=== PATIENT | female | born 1995 | race Caucasian/White ===

== ENCOUNTER 2016-10-11 18:48 | Emergency (ER) | payer OTHER ==
[2016-10-11 18:53] VITALS: BP 120/78
[2016-10-11] MEDS ORDERED: FAMOTIDINE 20 MG/2 ML VIAL IV STA (19:08)
[2016-10-11] MEDS ORDERED: SODIUM CHLORIDE 0.9% 1,000 ML IV ONE (19:08)
[2016-10-11] MEDS ORDERED: methylPREDNISolone SOD SUCCI 125 MG/2 ML VIAL IV STA (19:08)
[2016-10-11] MEDS ORDERED: diphenhydrAMINE 50 MG/ML 1 ML VIAL IVP STA (19:08)
--- NOTE | 2016-10-11 19:15 | ED ---
General Adult HPI - General Chief complaint: Allergic Reaction Stated complaint: poss allergic reaction to new med Time Seen by Provider: 10/11/16 19:04 Source: patient, family, RN notes reviewed Mode of arrival: wheelchair Limitations: no limitations - History of Present Illness Initial comments: 20-year-old female presenting for ALLERGIC reaction. Patient states that she was started on Bactrim for UTI. She took her first dose today and about 30 minutes afterwards began feeling a diffuse rash develop which is itchy and affecting her whole body. She states she took 50 mg of by mouth Benadryl at about 6:30 PM. She didn't have any significant improvement of her symptoms since then so she came to the ED. She denies any shortness of breath or throat swelling. She denies any history of known ALLERGIES to any medications. She has had Bactrim in the past without reaction. She denies any fevers or chills. She denies any nausea or vomiting. - Related Data Home Medications Medication Instructions Recorded Confirmed Lisdexamfetamine Dimesylate 70 mg PO QAM 10/11/16 10/11/16 [Vyvanse] Norethindrone AC-Eth Estradiol 1 tab PO DAILY 10/11/16 10/11/16 [Microgestin 21 1.5-30 Tab] Sulfamethox-Tmp 800-160Mg [Bactrim 1 tab PO Q12HR 10/11/16 10/11/16 DS 800-160 mg] diphenhydrAMINE [Benadryl] 50 mg PO DAILY PRN 10/11/16 10/11/16 Previous Rx's Medication Instructions Recorded Cephalexin [Keflex] 500 mg PO BID #14 cap 10/11/16 diphenhydrAMINE [Benadryl] 25 mg PO QID PRN #16 capsule 10/11/16 predniSONE 40 mg PO DAILY 3 Days 10/11/16 Allergies Allergy/AdvReac Type Severity Reaction Status Date / Time sulfamethoxazole Allergy Rash/Hives Verified 10/11/16 19:00 [From Bactrim] trimethoprim [From Bactrim] Allergy Rash/Hives Verified 10/11/16 19:00 Review of Systems ROS Statement: Those systems with pertinent positive or pertinent negative responses have been documented in the HPI. ROS Other: All systems not noted in ROS Statement are negative. Past Medical History Additional Past Medical History / Comment(s): frequent UTI's History of Any Multi-Drug Resistant Organisms: None Reported Past Surgical History: Adenoidectomy, Tonsillectomy Past Psychological History: No Psychological Hx Reported Smoking Status: Never smoker Past Alcohol Use History: None Reported Past Drug Use History: None Reported General Exam - General Exam Comments Initial Comments: General: Awake and Alert. No acute distress. Does not appear acutely ill. Eyes: GOYO, EOM intact. No nystagmus. No scleral icterus. HENT: Atraumatic, normocephalic. Mucous membranes moist. Trachea midline. No posterior pharyngeal edema. Neck: The neck is supple, there is no tenderness or JVD. Cardiovascular: Regular rate and rhythm. No murmur, rub, or gallop is appreciated. Distal pulses intact. Respiratory: Lungs are clear to auscultation bilaterally. No wheezes, rales, rhonchi. No respiratory distress. Gastrointestinal: Soft, Nontender. No rebound or guarding. Non-distended. No masses or organomegaly noted. No CVA tenderness. Musculoskeletal: No tenderness. Normal ROM. No gross deformity. No strength deficits. Neurological: A&Ox3. CN II-XII grossly intact, There are no obvious motor or sensory deficits. Coordination appears grossly intact. Speech is normal. Skin: Skin is warm and dry. Diffuse erythematous rash over entire body. Psychiatric: Cooperative, appropriate mood & affect, normal judgment. Limitations: no limitations Course Vital Signs 10/11/16 10/11/16 10/11/16 18:50 19:37 20:20 Temperature 97.6 F 98.4 F Pulse Rate 101 H 88 Respiratory 16 16 18 Rate Blood Pressure 120/78 O2 Sat by Pulse 98 98 Oximetry Medical Decision Making - Medical Decision Making 89-year-old female presenting for ALLERGIC reaction. Reaction likely secondary to Bactrim use. Patient was given IV fluids, Benadryl, Solu-Medrol, Pepcid. Lab workup is grossly unremarkable. UA does show evidence of infection. Patient reevaluated and appears significantly improved after meds/IVF. Patient was given dose of Keflex in the ED and monitored. No reaction to this medication. Discussed continuing Keflex for treatment of UTI. Discussed use of prednisone and Benadryl for symptomatic management. Rx provided. Discussed concerning signs symptoms for immediate return to the ED. Patient and mother agreeable with plan discharge home. - Lab Data Result diagrams: 10/11/16 19:30 10/11/16 19:30 Lab Results 10/11/16 10/11/16 10/11/16 Range/Units 19:30 19:30 19:30 WBC 5.9 (4.0-11.0) k/uL RBC 4.87 (3.80-5.40) m/uL Hgb 14.4 (11.4-16.0) gm/dL Hct 41.5 (34.0-46.0) % MCV 85.1 (80.0-100.0) fL MCH 29.6 (25.0-35.0) pg MCHC 34.8 (31.0-37.0) g/dL RDW 13.4 (11.5-15.5) % Plt Count 353 (150-450) k/uL Neutrophils % 50 % Lymphocytes % 43 % Monocytes % 3 % Eosinophils % 1 % Basophils % 0 % Neutrophils # 3.0 (1.3-7.7) k/uL Lymphocytes # 2.6 (1.0-4.8) k/uL Monocytes # 0.2 (0-1.0) k/uL Eosinophils # 0.1 (0-0.7) k/uL Basophils # 0.0 (0-0.2) k/uL Sodium 140 (137-145) mmol/L Potassium 4.1 (3.5-5.1) mmol/L Chloride 109 H (98-107) mmol/L Carbon Dioxide 21 L (22-30) mmol/L Anion Gap 10 mmol/L BUN 7 (7-17) mg/dL Creatinine 0.70 (0.52-1.04) mg/dL Est GFR (MDRD) Af Amer >60 (>60 ml/min/1.73 sqM) Est GFR (MDRD) Non-Af >60 (>60 ml/min/1.73 sqM) Glucose 104 H (74-99) mg/dL Calcium 9.2 (8.4-10.2) mg/dL Urine Color Urine Appearance (Clear) Urine pH (5.0-8.0) Ur Specific [place] (1.001-1.035) Urine Protein (Negative) Urine Glucose (UA) (Negative) Urine Ketones (Negative) Urine Blood (Negative) Urine Nitrite (Negative) Urine Bilirubin (Negative) Urine Urobilinogen (<2.0) mg/dL Ur Leukocyte Esterase (Negative) Urine WBC (0-5) /hpf Ur Squamous Epith Cells (0-4) /hpf Urine Bacteria (None) /hpf Urine Mucus (None) /hpf Urine HCG, Qual Not Detected (Not Detectd) 10/11/16 Range/Units 19:30 WBC (4.0-11.0) k/uL RBC (3.80-5.40) m/uL Hgb (11.4-16.0) gm/dL Hct (34.0-46.0) % MCV (80.0-100.0) fL MCH (25.0-35.0) pg MCHC (31.0-37.0) g/dL RDW (11.5-15.5) % Plt Count (150-450) k/uL Neutrophils % % Lymphocytes % % Monocytes % % Eosinophils % % Basophils % % Neutrophils # (1.3-7.7) k/uL Lymphocytes # (1.0-4.8) k/uL Monocytes # (0-1.0) k/uL Eosinophils # (0-0.7) k/uL Basophils # (0-0.2) k/uL Sodium (137-145) mmol/L Potassium (3.5-5.1) mmol/L Chloride (98-107) mmol/L Carbon Dioxide (22-30) mmol/L Anion Gap mmol/L BUN (7-17) mg/dL Creatinine (0.52-1.04) mg/dL Est GFR (MDRD) Af Amer (>60 ml/min/1.73 sqM) Est GFR (MDRD) Non-Af (>60 ml/min/1.73 sqM) Glucose (74-99) mg/dL Calcium (8.4-10.2) mg/dL Urine Color Yellow Urine Appearance Cloudy H (Clear) Urine pH 6.5 (5.0-8.0) Ur Specific [place] 1.023 (1.001-1.035) Urine Protein Trace H (Negative) Urine Glucose (UA) Negative (Negative) Urine Ketones Negative (Negative) Urine Blood Negative (Negative) Urine Nitrite Positive H (Negative) Urine Bilirubin Negative (Negative) Urine Urobilinogen <2.0 (<2.0) mg/dL Ur Leukocyte Esterase Small H (Negative) Urine WBC 26 H (0-5) /hpf Ur Squamous Epith Cells 8 H (0-4) /hpf Urine Bacteria Many H (None) /hpf Urine Mucus Rare H (None) /hpf Urine HCG, Qual (Not Detectd) Disposition Clinical Impression: Allergic reaction, UTI (urinary tract infection) Disposition: HOME SELF-CARE Condition: Stable Instructions: Antibiotic Medication Allergy (ED), Urinary Tract Infection in Women (ED) Additional Instructions: Stop taking the Bactrim. Please follow up with Urology regarding your recurrent UTIs. Prescriptions: Cephalexin [Keflex] 500 mg PO BID #14 cap diphenhydrAMINE [Benadryl] 25 mg PO QID PRN #16 capsule PRN Reason: Rash predniSONE 40 mg PO DAILY 3 Days Referrals: Duncan Ag Jr, DO [Primary Care Provider] - 1-2 days Darrick Mckeon MD [STAFF PHYSICIAN] - 1-2 days
[2016-10-11 19:41] LABS: Basophils % (A) 0 %; CH 30.3; CHCM 35.8; Eosinophils # (A) 0.1 k/uL (0-0.7); Eosinophils % (A) 1 %; HCT 41.5 % (34.0-46.0); HDW 2.69; HGB 14.4 gm/dL (11.4-16.0); Luc # (Auto) 0.13; Luc % (Auto) 2; Lymphocytes # (A) 2.6 k/uL (1.0-4.8); Lymphocytes % (A) 43 %; MCH 29.6 pg (25.0-35.0); MCHC 34.8 g/dL (31.0-37.0); MCV 85.1 fL (80.0-100.0); Mean Platelet Volume 6.2; Monocytes # (A) 0.2 k/uL (0-1.0); Monocytes % (A) 3 %; Neutrophils % (A) 50 %; RBC 4.87 m/uL (3.80-5.40); RDW 13.4 % (11.5-15.5); WBC 5.9 k/uL (4.0-11.0); WBC (Perox) 5.78
[2016-10-11 19:55] LABS: Anion Gap 10 mmol/L; Appearance,Urine Cloudy (Clear); Bacteria,Urine Many /hpf; Bilirubin,Urine Negative (Negative); Blood Urea Nitrogen 7 mg/dL (7-17); Calcium 9.2 mg/dL (8.4-10.2); Carbon Dioxide 21 mmol/L (22-30); Chloride 109 mmol/L (98-107); Glucose 104 mg/dL (74-99); Glucose,Urine (UA) Negative (Negative); Ketones,Urine Negative (Negative); Leukocyte Esterase,Urine Small (Negative); Mucus,Urine Rare /hpf; Nitrite,Urine Positive (Negative); Non-African American GFR(MDRD) >60 (>60 ml/min/1.73 sqM); PH, Urine 6.5 (5.0-8.0); Particle Count 17564; Potassium 4.1 mmol/L (3.5-5.1); Protein,Urine Trace (Negative); Sodium 140 mmol/L (137-145); Specific Gravity,Urine 1.023 (1.001-1.035); Squamous Epithelial Cell,Urine 8 /hpf (0-4); UA Billing (MACRO vs. MICRO) MICRO; Urobilinogen,Urine <2.0 mg/dL (<2.0); WBC,Urine 26 /hpf (0-5)
[2016-10-11] MEDS ORDERED: CEPHALEXIN 500 MG CAP PO STA (20:14)
[2016-10-11 20:21] VITALS: PULSE 88; RESP 18; TEMP 98.4
== END 2016-10-11 20:52 | disposition home or self-care (01) ==
LOC: EC 18:48
DX: R21 Rash and other nonspecific skin eruption (principal); T36.8X5A Adverse effect of other systemic antibiotics, initial encounter; N39.0 Urinary tract infection, site not specified; Z88.2 Allergy status to sulfonamides
CPT/HCPCS: 99283; 96374; 96375 ×2; 96361; 36415; 80048; 85025; 81001; 81025; J1200; J2930; 87077; 87086; 87186; 87491; 87591

== ENCOUNTER 2016-12-13 04:16 | Emergency (ER) | payer OTHER ==
[2016-12-13 04:23] VITALS: RESP 18
[2016-12-13] MEDS ORDERED: ONDANSETRON ODT 4 MG TAB PO STA (04:50)
[2016-12-13] MEDS ORDERED: IBUPROFEN 800 MG TAB PO STA (04:50)
[2016-12-13] MEDS ORDERED: ACETAMINOPHEN TAB 500 MG TAB PO STA (04:50)
[2016-12-13 05:08] LABS: Appearance,Urine Cloudy (Clear); Bacteria,Urine Rare /hpf; Bilirubin,Urine Negative (Negative); Glucose,Urine (UA) Negative (Negative); Ketones,Urine Negative (Negative); Leukocyte Esterase,Urine Small (Negative); Mucus,Urine Rare /hpf; Nitrite,Urine Negative (Negative); PH, Urine 5.5 (5.0-8.0); Particle Count 7062; Protein,Urine Negative (Negative); RBC,Urine 2 /hpf (0-5); Squamous Epithelial Cell,Urine 10 /hpf (0-4); UA Billing (MACRO vs. MICRO) MICRO; Urobilinogen,Urine <2.0 mg/dL (<2.0); WBC,Urine 5 /hpf (0-5)
[2016-12-13] MEDS ORDERED: PANTOPRAZOLE 40 MG/10 ML VIAL IVP STA (05:29)
[2016-12-13] MEDS ORDERED: RX INFO: IV CONTRAST WAS GIVEN 1 EACH MISC MISCELLANE PRN (05:29)
[2016-12-13] MEDS ORDERED: SODIUM CHLORIDE 0.9% 500 ML IV STA (05:29)
[2016-12-13] MEDS ORDERED: ONDANSETRON 4 MG/2 ML VIAL IVP STA (05:29)
[2016-12-13] MEDS ORDERED: SODIUM CHLORIDE 0.9% 1,000 ML IV STA ×3 (05:29→06:50)
[2016-12-13] MEDS ORDERED: MORPHINE SULFATE 4 MG/ML SYRINGE IV STA (05:29)
--- NOTE | 2016-12-13 05:31 | ED ---
General Adult HPI - General Chief complaint: Abdominal Pain Stated complaint: Pelvic Pain/Abdominal Pain Time Seen by Provider: 12/13/16 04:20 Source: patient, RN notes reviewed, old records reviewed Mode of arrival: ambulatory Limitations: no limitations - History of Present Illness Initial comments: This is a 21-year-old female ER for evaluation of abdominal pain abdominal pain , no fevers. Patient recently diagnosed with urinary tract infection to appropriate antibiotic treatment and no improvement in pain. Patient denies travel history or sick contacts, denies history of similar complaints. No prior history of surgery, patient is severely nauseous with vomiting - Related Data Home Medications Medication Instructions Recorded Confirmed Lisdexamfetamine Dimesylate 70 mg PO QAM 10/11/16 12/13/16 [Vyvanse] Norethindrone AC-Eth Estradiol 1 tab PO DAILY 10/11/16 12/13/16 [Microgestin 21 1.5-30 Tab] Nitrofurantoin Monohyd/M-Cryst 100 mg PO Q12HR 12/13/16 12/13/16 [Macrobid] Allergies Allergy/AdvReac Type Severity Reaction Status Date / Time Sulfa (Sulfonamide Allergy Unknown Verified 12/13/16 07:54 Antibiotics) sulfamethoxazole Allergy Rash/Hives Verified 12/13/16 07:54 [From Bactrim] trimethoprim [From Bactrim] Allergy Rash/Hives Verified 12/13/16 07:54 Review of Systems ROS Statement: Those systems with pertinent positive or pertinent negative responses have been documented in the HPI. ROS Other: All systems not noted in ROS Statement are negative. Past Medical History Additional Past Medical History / Comment(s): frequent UTI's History of Any Multi-Drug Resistant Organisms: None Reported Past Surgical History: Adenoidectomy, Tonsillectomy Past Psychological History: No Psychological Hx Reported Smoking Status: Current some day smoker Past Alcohol Use History: None Reported Past Drug Use History: None Reported General Exam Limitations: no limitations General appearance: alert, in no apparent distress, anxious, obese Head exam: Present: atraumatic, normocephalic, normal inspection Eye exam: Present: normal appearance, PERRL, EOMI. Absent: scleral icterus, conjunctival injection, periorbital swelling ENT exam: Present: normal exam, mucous membranes moist Neck exam: Present: normal inspection. Absent: tenderness, meningismus, lymphadenopathy Respiratory exam: Present: normal lung sounds bilaterally. Absent: respiratory distress, wheezes, rales, rhonchi, stridor Cardiovascular Exam: Present: regular rate, normal rhythm, normal heart sounds. Absent: systolic murmur, diastolic murmur, rubs, gallop, clicks GI/Abdominal exam: Present: soft, tenderness, normal bowel sounds. Absent: distended, guarding, rebound, rigid Extremities exam: Present: normal inspection, full ROM, normal capillary refill. Absent: tenderness, pedal edema, joint swelling, calf tenderness Back exam: Present: normal inspection Neurological exam: Present: alert, oriented X3, CN II-XII intact Psychiatric exam: Present: normal affect, normal mood Skin exam: Present: warm, dry, intact, normal color. Absent: rash Course Vital Signs 12/13/16 12/13/16 04:20 07:55 Temperature 98.0 F Pulse Rate 81 95 Respiratory 18 18 Rate Blood Pressure 130/96 120/71 O2 Sat by Pulse 99 97 Oximetry Medical Decision Making - Medical Decision Making 21 [facility] for evaluation. Patient was SEF for nausea vomiting diarrhea, recent diagnosis of UTI which has resolved, patient's symptoms are now resolved we'll treat outpatient with antibiotics, patient feeling better with fluid resuscitation, CT abdomen and pelvis is negative for acute disease - Lab Data Result diagrams: 12/13/16 05:45 12/13/16 05:45 Lab Results 12/13/16 12/13/16 12/13/16 Range/Units 04:45 04:45 05:45 WBC (4.0-11.0) k/uL RBC (3.80-5.40) m/uL Hgb (11.4-16.0) gm/dL Hct (34.0-46.0) % MCV (80.0-100.0) fL MCH (25.0-35.0) pg MCHC (31.0-37.0) g/dL RDW (11.5-15.5) % Plt Count (150-450) k/uL Neutrophils % % Lymphocytes % % Monocytes % % Eosinophils % % Basophils % % Neutrophils # (1.3-7.7) k/uL Lymphocytes # (1.0-4.8) k/uL Monocytes # (0-1.0) k/uL Eosinophils # (0-0.7) k/uL Basophils # (0-0.2) k/uL Sodium 142 (137-145) mmol/L Potassium 4.7 (3.5-5.1) mmol/L Chloride 108 H (98-107) mmol/L Carbon Dioxide 20 L (22-30) mmol/L Anion Gap 14 mmol/L BUN 12 (7-17) mg/dL Creatinine 0.65 (0.52-1.04) mg/dL Est GFR (MDRD) Af Amer >60 (>60 ml/min/1.73 sqM) Est GFR (MDRD) Non-Af >60 (>60 ml/min/1.73 sqM) Glucose 114 H (74-99) mg/dL Plasma Lactic Acid Mor (0.7-2.0) mmol/L Calcium 9.8 (8.4-10.2) mg/dL Total Bilirubin 0.7 (0.2-1.3) mg/dL AST 32 (14-36) U/L ALT 23 (9-52) U/L Alkaline Phosphatase 95 (38-126) U/L Total Protein 8.5 H (6.3-8.2) g/dL Albumin 4.7 (3.5-5.0) g/dL Amylase 52 (30-110) U/L Lipase 58 (23-300) U/L Urine Color Yellow Urine Appearance Cloudy H (Clear) Urine pH 5.5 (5.0-8.0) Ur Specific [place] 1.010 (1.001-1.035) Urine Protein Negative (Negative) Urine Glucose (UA) Negative (Negative) Urine Ketones Negative (Negative) Urine Blood Negative (Negative) Urine Nitrite Negative (Negative) Urine Bilirubin Negative (Negative) Urine Urobilinogen <2.0 (<2.0) mg/dL Ur Leukocyte Esterase Small H (Negative) Urine RBC 2 (0-5) /hpf Urine WBC 5 (0-5) /hpf Ur Squamous Epith Cells 10 H (0-4) /hpf Urine Bacteria Rare H (None) /hpf Urine Mucus Rare H (None) /hpf Urine HCG, Qual Not Detected (Not Detectd) 12/13/16 12/13/16 Range/Units 05:45 05:45 WBC 8.1 (4.0-11.0) k/uL RBC 4.90 (3.80-5.40) m/uL Hgb 14.6 (11.4-16.0) gm/dL Hct 41.0 (34.0-46.0) % MCV 83.7 (80.0-100.0) fL MCH 29.7 (25.0-35.0) pg MCHC 35.5 (31.0-37.0) g/dL RDW 12.7 (11.5-15.5) % Plt Count 331 (150-450) k/uL Neutrophils % 70 % Lymphocytes % 20 % Monocytes % 5 % Eosinophils % 2 % Basophils % 1 % Neutrophils # 5.7 (1.3-7.7) k/uL Lymphocytes # 1.7 (1.0-4.8) k/uL Monocytes # 0.4 (0-1.0) k/uL Eosinophils # 0.1 (0-0.7) k/uL Basophils # 0.1 (0-0.2) k/uL Sodium (137-145) mmol/L Potassium (3.5-5.1) mmol/L Chloride (98-107) mmol/L Carbon Dioxide (22-30) mmol/L Anion Gap mmol/L BUN (7-17) mg/dL Creatinine (0.52-1.04) mg/dL Est GFR (MDRD) Af Amer (>60 ml/min/1.73 sqM) Est GFR (MDRD) Non-Af (>60 ml/min/1.73 sqM) Glucose (74-99) mg/dL Plasma Lactic Acid Mor 3.1 H* (0.7-2.0) mmol/L Calcium (8.4-10.2) mg/dL Total Bilirubin (0.2-1.3) mg/dL AST (14-36) U/L ALT (9-52) U/L Alkaline Phosphatase (38-126) U/L Total Protein (6.3-8.2) g/dL Albumin (3.5-5.0) g/dL Amylase (30-110) U/L Lipase (23-300) U/L Urine Color Urine Appearance (Clear) Urine pH (5.0-8.0) Ur Specific [place] (1.001-1.035) Urine Protein (Negative) Urine Glucose (UA) (Negative) Urine Ketones (Negative) Urine Blood (Negative) Urine Nitrite (Negative) Urine Bilirubin (Negative) Urine Urobilinogen (<2.0) mg/dL Ur Leukocyte Esterase (Negative) Urine RBC (0-5) /hpf Urine WBC (0-5) /hpf Ur Squamous Epith Cells (0-4) /hpf Urine Bacteria (None) /hpf Urine Mucus (None) /hpf Urine HCG, Qual (Not Detectd) - Radiology Data Radiology results: report reviewed (CT abdomen and pelvis is negative for acute disease), image reviewed Disposition Clinical Impression: Abdominal pain, Gastroenteritis Disposition: HOME SELF-CARE Condition: Good Instructions: Abdominal Pain (ED) Referrals: Duncan Ag Jr, DO [Primary Care Provider] - 1-2 days
[2016-12-13 06:01] LABS: Basophils # (A) 0.1 k/uL (0-0.2); Basophils % (A) 1 %; CH 29.9; CHCM 35.9; Eosinophils # (A) 0.1 k/uL (0-0.7); Eosinophils % (A) 2 %; HDW 2.59; HGB 14.6 gm/dL (11.4-16.0); Luc # (Auto) 0.15; Luc % (Auto) 2; Lymphocytes # (A) 1.7 k/uL (1.0-4.8); Lymphocytes % (A) 20 %; MCH 29.7 pg (25.0-35.0); MCHC 35.5 g/dL (31.0-37.0); MCV 83.7 fL (80.0-100.0); Mean Platelet Volume 6.1; Monocytes # (A) 0.4 k/uL (0-1.0); Monocytes % (A) 5 %; Neutrophils # (A) 5.7 k/uL (1.3-7.7); Neutrophils % (A) 70 %; RDW 12.7 % (11.5-15.5); WBC 8.1 k/uL (4.0-11.0); WBC (Perox) 7.41
[2016-12-13 06:20] LABS: ALT 23 U/L (9-52); AST 32 U/L (14-36); Alkaline Phosphatase 95 U/L (38-126); Amylase 52 U/L (30-110); Anion Gap 14 mmol/L; Blood Urea Nitrogen 12 mg/dL (7-17); Calcium 9.8 mg/dL (8.4-10.2); Carbon Dioxide 20 mmol/L (22-30); Chloride 108 mmol/L (98-107); Glucose 114 mg/dL (74-99); Non-African American GFR(MDRD) >60 (>60 ml/min/1.73 sqM); Potassium 4.7 mmol/L (3.5-5.1); Sodium 142 mmol/L (137-145); Total Bilirubin 0.7 mg/dL (0.2-1.3); Total Protein 8.5 g/dL (6.3-8.2)
--- NOTE | 2016-12-13 08:44 | CT ---
EXAMINATION TYPE: CT abdomen pelvis w con DATE OF EXAM: 12/13/2016 HISTORY: pain, nausea and vomiting CT DLP: 630.6mGycm Automated Exposure Control for Dose Reduction was Utilized. CONTRAST: CT scan of the abdomen and pelvis is performed without oral and with IV Contrast, patient injected wi th 100 mL of Omnipaque 300. COMPARISON: None. FINDINGS: LUNG BASES: No significant abnormality is appreciated. LIVER/GB: No significant abnormality is appreciated. PANCREAS: No significant abnormality is seen. SPLEEN: No significant abnormality is seen. ADRENALS: No significant abnormality is seen. KIDNEYS: No significant abnormality is seen. BOWEL: The evaluation of bowel is suboptimal secondary to lack of enteric contrast. There is no suspi cious small or large bowel dilatation. Normal-appearing appendix is seen from cecum . UTERUS/ADNEXA: Uterus is anteverted in shape and within normal limits in size projecting to right of midline. Tiny amount of free fluid is seen in right pelvis on axial image 68, nonspecific finding. LYMPH NODES: No greater than 1cm abdominal or pelvic lymph nodes are appreciated. OSSEOUS STRUCTURES: Prominent Schmorl node anterior inferior L1 endplate is seen. There is well corti cated linear lucency anterior superior L3 vertebra suspect limbus vertebra. OTHER: No significant additional abnormality is seen. IMPRESSION: No bowel obstruction. No significant acute finding is seen to account for patient's clini cabrera symptoms.
[2016-12-13 09:29] VITALS: BP 122/76; PULSE 80; TEMP 98.2
== END 2016-12-13 09:28 | disposition home or self-care (01) ==
LOC: EC 04:16
DX: K52.9 Noninfective gastroenteritis and colitis, unspecified (principal); R11.2 Nausea with vomiting, unspecified; F17.200 Nicotine dependence, unspecified, uncomplicated; Z79.3 Long term (current) use of hormonal contraceptives; Z79.899 Other long term (current) drug therapy; Z88.2 Allergy status to sulfonamides
CPT/HCPCS: 36415; 80053; 82150; 83605; 83690; 85025; 81001; 81025; 87491; 87591; 87086; 74177; 99284; 96374; 96375; 96361 ×3; J2405; Q9967; C9113

== ENCOUNTER 2017-08-02 10:35 | Emergency (ER) | payer OTHER ==
[2017-08-02 10:46] VITALS: RESP 18
[2017-08-02] MEDS ORDERED: SODIUM CHLORIDE 0.9% 2,000 ML IV STA (10:58)
[2017-08-02] MEDS ORDERED: ONDANSETRON 4 MG/2 ML VIAL IVP STA (10:58)
--- NOTE | 2017-08-02 11:24 | ED ---
Nausea/Vomiting/Diarrhea HPI - General Chief complaint: Nausea/Vomiting/Diarrhea Stated complaint: Flu Time Seen by Provider: 08/02/17 10:46 Source: patient, RN notes reviewed Mode of arrival: ambulatory Limitations: no limitations - History of Present Illness Initial comments: This a 21-year-old female presents emergency Department chief complaint of nausea vomiting diarrhea. Patient states symptoms started around 1:30 AM this morning. Patient states that she's had no contacts with some symptoms. She's had greater than 10 episodes of both emesis and diarrhea. She states she has generalized abdominal discomfort no localized abdominal pain. Patient denies any fever, chills at this time. Patient denies chest pain, cough or chest congestion. Denies any dysuria no hematuria. Patient states she is not she does have a miscarriage approximately 2 weeks ago. - Related Data Home Medications Medication Instructions Recorded Confirmed Lisdexamfetamine Dimesylate 70 mg PO QAM 10/11/16 08/02/17 [Vyvanse] Escitalopram [Lexapro] 20 mg PO DAILY 08/02/17 08/02/17 Ibuprofen [Motrin] 800 mg PO Q8H PRN 08/02/17 08/02/17 Viorele 1 tab PO DAILY 08/02/17 08/02/17 Previous Rx's Medication Instructions Recorded Ondansetron Odt [Zofran Odt] 4 mg PO Q8HR PRN #10 tab 08/02/17 Allergies Allergy/AdvReac Type Severity Reaction Status Date / Time Sulfa (Sulfonamide Allergy Unknown Verified 08/02/17 11:11 Antibiotics) sulfamethoxazole Allergy Rash/Hives Verified 08/02/17 11:11 [From Bactrim] trimethoprim [From Bactrim] Allergy Rash/Hives Verified 08/02/17 11:11 Review of Systems ROS Statement: Those systems with pertinent positive or pertinent negative responses have been documented in the HPI. ROS Other: All systems not noted in ROS Statement are negative. Past Medical History Additional Past Medical History / Comment(s): frequent UTI's History of Any Multi-Drug Resistant Organisms: None Reported Past Surgical History: Adenoidectomy, Tonsillectomy Past Psychological History: No Psychological Hx Reported Smoking Status: Current some day smoker Past Alcohol Use History: None Reported Past Drug Use History: None Reported General Exam Limitations: no limitations General appearance: alert, in no apparent distress Head exam: Present: atraumatic, normocephalic, normal inspection Eye exam: Present: normal appearance, PERRL, EOMI. Absent: scleral icterus, conjunctival injection, periorbital swelling ENT exam: Present: normal exam, normal oropharynx, mucous membranes moist, TM's normal bilaterally Neck exam: Present: normal inspection, full ROM. Absent: tenderness, meningismus, lymphadenopathy Respiratory exam: Present: normal lung sounds bilaterally. Absent: respiratory distress, wheezes, rales, rhonchi, stridor Cardiovascular Exam: Present: regular rate, normal rhythm, normal heart sounds. Absent: systolic murmur, diastolic murmur, rubs, gallop, clicks GI/Abdominal exam: Present: soft, normal bowel sounds. Absent: distended, tenderness, guarding, rebound, rigid Neurological exam: Present: alert, oriented X3, CN II-XII intact Skin exam: Present: warm, dry, intact, normal color. Absent: rash Course Vital Signs 08/02/17 10:40 Temperature 98.9 F Pulse Rate 114 H Respiratory 18 Rate Blood Pressure 137/73 O2 Sat by Pulse 98 Oximetry Medical Decision Making - Medical Decision Making 21-year-old female presented from for nausea vomiting diarrhea. Patient is better after antiemetics, IV fluids. Patient lab work reviewed essentially unremarkable. [facility] - Lab Data Result diagrams: 08/02/17 11:25 08/02/17 11:25 Lab Results 08/02/17 08/02/17 08/02/17 Range/Units 11:25 11:25 11:25 WBC 11.4 H (4.0-11.0) k/uL RBC 4.95 (3.80-5.40) m/uL Hgb 14.1 (11.4-16.0) gm/dL Hct 41.5 (34.0-46.0) % MCV 83.8 (80.0-100.0) fL MCH 28.6 (25.0-35.0) pg MCHC 34.1 (31.0-37.0) g/dL RDW 12.4 (11.5-15.5) % Plt Count 323 (150-450) k/uL Neutrophils % 94 % Lymphocytes % 3 % Monocytes % 2 % Eosinophils % 0 % Basophils % 0 % Neutrophils # 10.7 H (1.3-7.7) k/uL Lymphocytes # 0.4 L (1.0-4.8) k/uL Monocytes # 0.2 (0-1.0) k/uL Eosinophils # 0.0 (0-0.7) k/uL Basophils # 0.0 (0-0.2) k/uL Sodium 142 (137-145) mmol/L Potassium 4.2 (3.5-5.1) mmol/L Chloride 106 (98-107) mmol/L Carbon Dioxide 22 (22-30) mmol/L Anion Gap 14 mmol/L BUN 10 (7-17) mg/dL Creatinine 0.55 (0.52-1.04) mg/dL Est GFR (MDRD) Af Amer >60 (>60 ml/min/1.73 sqM) Est GFR (MDRD) Non-Af >60 (>60 ml/min/1.73 sqM) Glucose 124 H (74-99) mg/dL Calcium 9.7 (8.4-10.2) mg/dL Total Bilirubin 1.1 (0.2-1.3) mg/dL AST 18 (14-36) U/L ALT 25 (9-52) U/L Alkaline Phosphatase 116 (38-126) U/L Total Protein 7.7 (6.3-8.2) g/dL Albumin 4.5 (3.5-5.0) g/dL Amylase 52 (30-110) U/L Lipase 31 (23-300) U/L Urine Color Yellow Urine Appearance Cloudy H (Clear) Urine pH 6.5 (5.0-8.0) Ur Specific [place] 1.025 (1.001-1.035) Urine Protein 1+ H (Negative) Urine Glucose (UA) Negative (Negative) Urine Ketones 2+ H (Negative) Urine Blood Negative (Negative) Urine Nitrite Negative (Negative) Urine Bilirubin Negative (Negative) Urine Urobilinogen <2.0 (<2.0) mg/dL Ur Leukocyte Esterase Small H (Negative) Urine RBC 2 (0-5) /hpf Urine WBC 3 (0-5) /hpf Ur Squamous Epith Cells 40 H (0-4) /hpf Urine Bacteria Rare H (None) /hpf Urine Mucus Many H (None) /hpf Disposition Clinical Impression: Gastroenteritis Disposition: HOME SELF-CARE Condition: Stable Instructions: Gastroenteritis (ED) Additional Instructions: Please return to the Emergency Department if symptoms worsen or any other concerns. Prescriptions: Ondansetron Odt [Zofran Odt] 4 mg PO Q8HR PRN #10 tab PRN Reason: Nausea Referrals: Chris Kern MD [Primary Care Provider] - 1-2 days Time of Disposition: 12:12
[2017-08-02 11:59] LABS: Appearance,Urine Cloudy (Clear); Bacteria,Urine Rare /hpf; Bilirubin,Urine Negative (Negative); Blood,Urine Negative (Negative); Color,Urine Yellow; Glucose,Urine (UA) Negative (Negative); Ketones,Urine 2+ (Negative); Leukocyte Esterase,Urine Small (Negative); Mucus,Urine Many /hpf; Nitrite,Urine Negative (Negative); PH, Urine 6.5 (5.0-8.0); Protein,Urine 1+ (Negative); RBC,Urine 2 /hpf (0-5); Specific Gravity,Urine 1.025 (1.001-1.035); Squamous Epithelial Cell,Urine 40 /hpf (0-4); Urobilinogen,Urine <2.0 mg/dL (<2.0); WBC,Urine 3 /hpf (0-5)
[2017-08-02 12:04] LABS: Basophils % (A) 0 %; Eosinophils % (A) 0 %; HCT 41.5 % (34.0-46.0); HGB 14.1 gm/dL (11.4-16.0); Lymphocytes # (A) 0.4 k/uL (1.0-4.8); Lymphocytes % (A) 3 %; MCH 28.6 pg (25.0-35.0); MCHC 34.1 g/dL (31.0-37.0); MCV 83.8 fL (80.0-100.0); Mean Platelet Volume 6.4; Monocytes # (A) 0.2 k/uL (0-1.0); Monocytes % (A) 2 %; Neutrophils # (A) 10.7 k/uL (1.3-7.7); Neutrophils % (A) 94 %; Platelet Count 323 k/uL (150-450); RBC 4.95 m/uL (3.80-5.40); RDW 12.4 % (11.5-15.5); WBC 11.4 k/uL (4.0-11.0)
[2017-08-02 12:07] LABS: ALT 25 U/L (9-52); AST 18 U/L (14-36); Albumin 4.5 g/dL (3.5-5.0); Alkaline Phosphatase 116 U/L (38-126); Amylase 52 U/L (30-110); Anion Gap 14 mmol/L; Blood Urea Nitrogen 10 mg/dL (7-17); Calcium 9.7 mg/dL (8.4-10.2); Carbon Dioxide 22 mmol/L (22-30); Chloride 106 mmol/L (98-107); Glucose 124 mg/dL (74-99); Lipase 31 U/L (23-300); Potassium 4.2 mmol/L (3.5-5.1); Sodium 142 mmol/L (137-145); Total Bilirubin 1.1 mg/dL (0.2-1.3); Total Protein 7.7 g/dL (6.3-8.2)
[2017-08-02 12:22] VITALS: BP 114/67; PULSE 85; TEMP 98.4
== END 2017-08-02 12:30 | disposition home or self-care (01) ==
LOC: EC 10:35
DX: K52.9 Noninfective gastroenteritis and colitis, unspecified (principal); F17.200 Nicotine dependence, unspecified, uncomplicated; Z88.2 Allergy status to sulfonamides; Z79.899 Other long term (current) drug therapy
CPT/HCPCS: 36415; 80053; 82150; 83690; 85025; 81001; 99284; 96374; 96361; J2405

== ENCOUNTER 2017-10-04 21:58 | Emergency (ER) | payer OTHER ==
[2017-10-04 22:15] VITALS: RESP 20
[2017-10-04] MEDS ORDERED: SODIUM CHLORIDE 0.9% 1,000 ML IV STA (22:38)
[2017-10-04] MEDS ORDERED: ACETAMINOPHEN IV (For NPO) 1,000 MG in EMPTY BAG 1 BAG IVPB STA (22:38)
[2017-10-04 22:56] LABS: Basophils % (A) 0 %; Eosinophils # (A) 0.2 k/uL (0-0.7); Eosinophils % (A) 2 %; HCT 36.8 % (34.0-46.0); HGB 13.2 gm/dL (11.4-16.0); Lymphocytes # (A) 2.5 k/uL (1.0-4.8); Lymphocytes % (A) 28 %; MCH 29.1 pg (25.0-35.0); MCHC 35.7 g/dL (31.0-37.0); MCV 81.5 fL (80.0-100.0); Mean Platelet Volume 6.7; Monocytes # (A) 0.5 k/uL (0-1.0); Monocytes % (A) 5 %; Neutrophils # (A) 5.6 k/uL (1.3-7.7); Neutrophils % (A) 64 %; Platelet Count 348 k/uL (150-450); RBC 4.52 m/uL (3.80-5.40); RDW 12.4 % (11.5-15.5); WBC 8.8 k/uL (4.0-11.0)
--- NOTE | 2017-10-04 22:57 | ED ---
General Adult HPI - General Chief complaint: Dizziness Stated complaint: dizzy/sharp pains-10 wks preg Time Seen by Provider: 10/04/17 22:30 Source: patient, RN notes reviewed Mode of arrival: ambulatory Limitations: no limitations - History of Present Illness Initial comments: Patient's 21-year-old female who is approximately 10 weeks with twin gestation, presented emergency room today with chief length right-sided abdominal pain that started this afternoon. She states crampy type pain. Not as intense as it was earlier. States was very sharp. States little nauseated. Has noticed increased urinary frequency. Denies any vaginal bleeding or discharge. Has had ultrasound in this most recently 1 week ago. Denies any other complaint currently. Patient denies any recent fever, chills, shortness of breath, chest pain, back pain, numbness or tingling, dysuria or hematuria, constipation or diarrhea, headaches or visual changes, or any other complaints. - Related Data Home Medications Medication Instructions Recorded Confirmed Pnv,Calcium 72/Iron/Folic Acid 1 tab PO DAILY 10/04/17 10/04/17 [ Plus Tablet] Allergies Allergy/AdvReac Type Severity Reaction Status Date / Time Sulfa (Sulfonamide Allergy Anaphylaxis Verified 10/04/17 22:26 Antibiotics) sulfamethoxazole Allergy Rash/Hives Verified 10/04/17 22:26 [From Bactrim] trimethoprim [From Bactrim] Allergy Rash/Hives Verified 10/04/17 22:26 Review of Systems ROS Statement: Those systems with pertinent positive or pertinent negative responses have been documented in the HPI. ROS Other: All systems not noted in ROS Statement are negative. Past Medical History Additional Past Medical History / Comment(s): frequent UTI's History of Any Multi-Drug Resistant Organisms: None Reported Past Surgical History: Adenoidectomy, Tonsillectomy Past Psychological History: No Psychological Hx Reported Smoking Status: Former smoker Past Alcohol Use History: None Reported Past Drug Use History: None Reported General Exam - General Exam Comments Initial Comments: General: The patient is awake and alert, in no distress, and does not appear acutely ill. Eye: Pupils are equal, round and reactive to light, extra-ocular movements are intact. No nystagmus. There is normal conjunctiva bilaterally. No signs of icterus. Ears, nose, mouth and throat: There are moist mucous membranes and no oral lesions. Neck: The neck is supple, there is no tenderness or JVD. Cardiovascular: There is a regular rate and rhythm. No murmur, rub or gallop is appreciated. Respiratory: Lungs are clear to auscultation, respirations are non-labored, breath sounds are equal. No wheezes, stridor, rales, or rhonchi. Gastrointestinal: Abdomen soft nontender. No rebound tenderness, guarding, or CVA tenderness. Musculoskeletal: Normal ROM, no tenderness. Strength 5/5. Sensation intact. Pulses equal bilaterally 2+. Neurological: A&O x 3. CN II-XII intact, There are no obvious motor or sensory deficits. Coordination appears grossly intact. Speech is normal. Skin: Skin is warm and dry and no rashes or lesions are noted. Psychiatric: Cooperative, appropriate mood & affect, normal judgment. Limitations: no limitations Course Vital Signs 10/04/17 10/04/17 22:11 22:15 Temperature 98.6 F Pulse Rate 98 Pulse Rate [ 98 Bilateral Denture Model Maker ] Respiratory 20 Rate Blood Pressure 119/73 O2 Sat by Pulse 99 Oximetry Medical Decision Making - Medical Decision Making Patient reexamined at this time shows no signs of distress. She states she is feeling better here in emergency room. Her abdomen was soft nontender. No vaginal bleeding or discharge. She does not that she is 10 weeks gestation with twins. Patient states she has had also most recently 1 week ago. Was discussed with patient about ultrasound here. At this time patient has been waiting his ultrasound has been backed up and she feels full. Green discharge follow-up with her DIGITAL SERVICE ENGINEER in the morning. Patient will be discharged advised return if any symptoms increase or worsen. - Lab Data Result diagrams: 10/04/17 22:33 10/04/17 22:33 Lab Results 10/04/17 10/04/17 10/04/17 Range/Units 22:33 22:33 22:33 WBC 8.8 (4.0-11.0) k/uL RBC 4.52 (3.80-5.40) m/uL Hgb 13.2 (11.4-16.0) gm/dL Hct 36.8 (34.0-46.0) % MCV 81.5 (80.0-100.0) fL MCH 29.1 (25.0-35.0) pg MCHC 35.7 (31.0-37.0) g/dL RDW 12.4 (11.5-15.5) % Plt Count 348 (150-450) k/uL Neutrophils % 64 % Lymphocytes % 28 % Monocytes % 5 % Eosinophils % 2 % Basophils % 0 % Neutrophils # 5.6 (1.3-7.7) k/uL Lymphocytes # 2.5 (1.0-4.8) k/uL Monocytes # 0.5 (0-1.0) k/uL Eosinophils # 0.2 (0-0.7) k/uL Basophils # 0.0 (0-0.2) k/uL Sodium 140 (137-145) mmol/L Potassium 3.9 (3.5-5.1) mmol/L Chloride 104 (98-107) mmol/L Carbon Dioxide 23 (22-30) mmol/L Anion Gap 13 mmol/L BUN 6 L (7-17) mg/dL Creatinine 0.40 L (0.52-1.04) mg/dL Est GFR (CKD-EPI)AfAm >90 (>60 ml/min/1.73 sqM) Est GFR (CKD-EPI)NonAf >90 (>60 ml/min/1.73 sqM) Glucose 88 (74-99) mg/dL Calcium 9.1 (8.4-10.2) mg/dL Total Bilirubin <0.1 L (0.2-1.3) mg/dL AST 16 (14-36) U/L ALT 20 (9-52) U/L Alkaline Phosphatase 69 (38-126) U/L Total Protein 6.6 (6.3-8.2) g/dL Albumin 3.8 (3.5-5.0) g/dL Urine Color Light Yellow Urine Appearance Clear (Clear) Urine pH 7.5 (5.0-8.0) Ur Specific [place] 1.004 (1.001-1.035) Urine Protein Negative (Negative) Urine Glucose (UA) Negative (Negative) Urine Ketones Negative (Negative) Urine Blood Negative (Negative) Urine Nitrite Negative (Negative) Urine Bilirubin Negative (Negative) Urine Urobilinogen <2.0 (<2.0) mg/dL Ur Leukocyte Esterase Negative (Negative) Disposition Clinical Impression: Abdominal pain in Disposition: HOME SELF-CARE Condition: Good Instructions: Abdominal Pain in (ED) Additional Instructions: Please follow-up with DIGITAL SERVICE ENGINEER tomorrow morning as discussed. Please return to emergency room for any other concerns. Is patient prescribed a controlled substance at d/c from ED?: No Referrals: Chris Kern MD [Primary Care Provider] - 1-2 days Latanya Goodwin MD [STAFF PHYSICIAN] - 1-2 days Time of Disposition: 00:30
[2017-10-04 22:59] LABS: Appearance,Urine Clear (Clear); Bilirubin,Urine Negative (Negative); Blood,Urine Negative (Negative); Color,Urine Light Yellow; Glucose,Urine (UA) Negative (Negative); Ketones,Urine Negative (Negative); Leukocyte Esterase,Urine Negative (Negative); Nitrite,Urine Negative (Negative); PH, Urine 7.5 (5.0-8.0); Protein,Urine Negative (Negative); Specific Gravity,Urine 1.004 (1.001-1.035); Urobilinogen,Urine <2.0 mg/dL (<2.0)
[2017-10-04 23:09] LABS: ALT 20 U/L (9-52); AST 16 U/L (14-36); Albumin 3.8 g/dL (3.5-5.0); Alkaline Phosphatase 69 U/L (38-126); Anion Gap 13 mmol/L; Blood Urea Nitrogen 6 mg/dL (7-17); Calcium 9.1 mg/dL (8.4-10.2); Carbon Dioxide 23 mmol/L (22-30); Chloride 104 mmol/L (98-107); Glucose 88 mg/dL (74-99); Potassium 3.9 mmol/L (3.5-5.1); Sodium 140 mmol/L (137-145); Total Bilirubin <0.1 mg/dL (0.2-1.3); Total Protein 6.6 g/dL (6.3-8.2)
[2017-10-05 00:46] VITALS: BP 125/70; PULSE 96; TEMP 98.3
== END 2017-10-05 00:46 | disposition home or self-care (01) ==
LOC: EC 21:58
DX: O99.89 Other specified diseases and conditions complicating pregnancy, childbirth and the puerperium (principal); R10.9 Unspecified abdominal pain; R42 Dizziness and giddiness; R11.0 Nausea; Z87.891 Personal history of nicotine dependence; Z88.2 Allergy status to sulfonamides; Z88.1 Allergy status to other antibiotic agents; Z3A.10 10 weeks gestation of pregnancy; Z79.899 Other long term (current) drug therapy
CPT/HCPCS: 36415; 80053; 85025; 81003; 99284; 96374; 96361; J0131

== ENCOUNTER 2017-10-18 22:04 | Emergency (ER) | payer OTHER ==
--- NOTE | 2017-10-18 22:54 | ED ---
Abdominal Pain HPI - General Chief Complaint: Abdominal Pain Stated Complaint: abdominal & back pain/12 wks preg Time Seen by Provider: 10/18/17 22:37 Source: patient Mode of arrival: ambulatory Limitations: no limitations - History of Present Illness Initial Comments: Patient's a 21-year-old woman presenting with right lower quadrants pain radiating to her flank. She states that she did start amoxicillin today for urinary tract infection this was diagnosed by her hand candy dipper Dr. Goodwin. Complaint: abdominal pain Onset/Timin -: hour(s) Location: RLQ Radiation: R flank Severity: moderate Quality: sharp Consistency: constant Improves With: nothing Worsens With: nothing - Related Data Home Medications Medication Instructions Recorded Confirmed Pnv,Calcium 72/Iron/Folic Acid 1 tab PO DAILY 10/04/17 10/18/17 [ Plus Tablet] Amoxicillin 500 mg PO BID 10/18/17 10/18/17 Allergies Allergy/AdvReac Type Severity Reaction Status Date / Time Sulfa (Sulfonamide Allergy Anaphylaxis Verified 10/18/17 22:34 Antibiotics) sulfamethoxazole Allergy Rash/Hives Verified 10/18/17 22:34 [From Bactrim] trimethoprim [From Bactrim] Allergy Rash/Hives Verified 10/18/17 22:34 Review of Systems ROS Statement: Those systems with pertinent positive or pertinent negative responses have been documented in the HPI. ROS Other: All systems not noted in ROS Statement are negative. Past Medical History Additional Past Medical History / Comment(s): frequent UTI's History of Any Multi-Drug Resistant Organisms: None Reported Past Surgical History: Adenoidectomy, Tonsillectomy Past Psychological History: No Psychological Hx Reported Smoking Status: Former smoker Past Alcohol Use History: None Reported Past Drug Use History: None Reported General Exam Limitations: no limitations General appearance: alert, in no apparent distress Head exam: Present: atraumatic, normocephalic Eye exam: Present: normal appearance. Absent: scleral icterus, conjunctival injection ENT exam: Present: normal oropharynx Respiratory exam: Present: normal lung sounds bilaterally. Absent: respiratory distress, wheezes, rales, rhonchi, stridor Cardiovascular Exam: Present: regular rate, normal rhythm, normal heart sounds. Absent: systolic murmur, diastolic murmur, rubs, gallop GI/Abdominal exam: Present: soft, normal bowel sounds. Absent: distended, tenderness, guarding, rebound, rigid, mass, pulsatile mass, hernia Extremities exam: Present: normal inspection, normal capillary refill. Absent: pedal edema, calf tenderness Back exam: Present: normal inspection. Absent: CVA tenderness (R), CVA tenderness (L) Neurological exam: Present: alert Skin exam: Present: warm, dry, intact, normal color. Absent: rash Course Vital Signs 10/18/17 10/19/17 10/19/17 22:17 00:42 00:44 Temperature 98.6 F Pulse Rate 82 81 Respiratory 17 18 18 Rate Blood Pressure 138/72 119/77 O2 Sat by Pulse 100 100 Oximetry 10/19/17 01:36 Temperature 97.8 F Pulse Rate 75 Respiratory 18 Rate Blood Pressure 106/57 O2 Sat by Pulse 99 Oximetry Medical Decision Making - Lab Data Result diagrams: 10/18/17 23:13 10/18/17 23:13 Lab Results 10/18/17 10/18/17 10/18/17 Range/Units 22:43 22:43 23:13 WBC (4.0-11.0) k/uL RBC (3.80-5.40) m/uL Hgb (11.4-16.0) gm/dL Hct (34.0-46.0) % MCV (80.0-100.0) fL MCH (25.0-35.0) pg MCHC (31.0-37.0) g/dL RDW (11.5-15.5) % Plt Count (150-450) k/uL Neutrophils % % Lymphocytes % % Monocytes % % Eosinophils % % Basophils % % Neutrophils # (1.3-7.7) k/uL Lymphocytes # (1.0-4.8) k/uL Monocytes # (0-1.0) k/uL Eosinophils # (0-0.7) k/uL Basophils # (0-0.2) k/uL Sodium 140 (137-145) mmol/L Potassium 3.7 (3.5-5.1) mmol/L Chloride 105 (98-107) mmol/L Carbon Dioxide 22 (22-30) mmol/L Anion Gap 13 mmol/L BUN 9 (7-17) mg/dL Creatinine 0.40 L (0.52-1.04) mg/dL Est GFR (CKD-EPI)AfAm >90 (>60 ml/min/1.73 sqM) Est GFR (CKD-EPI)NonAf >90 (>60 ml/min/1.73 sqM) Glucose 79 (74-99) mg/dL Calcium 9.4 (8.4-10.2) mg/dL Total Bilirubin <0.1 L (0.2-1.3) mg/dL AST 15 (14-36) U/L ALT 29 (9-52) U/L Alkaline Phosphatase 66 (38-126) U/L Total Protein 6.4 (6.3-8.2) g/dL Albumin 3.6 (3.5-5.0) g/dL Amylase 62 (30-110) U/L Lipase 59 (23-300) U/L Urine Color Light Yellow Urine Appearance Cloudy H (Clear) Urine pH 6.5 (5.0-8.0) Ur Specific [place] 1.006 (1.001-1.035) Urine Protein Negative (Negative) Urine Glucose (UA) Negative (Negative) Urine Ketones Negative (Negative) Urine Blood Negative (Negative) Urine Nitrite Negative (Negative) Urine Bilirubin Negative (Negative) Urine Urobilinogen <2.0 (<2.0) mg/dL Ur Leukocyte Esterase Small H (Negative) Urine RBC 1 (0-5) /hpf Urine WBC 4 (0-5) /hpf Ur Squamous Epith Cells 19 H (0-4) /hpf Urine Bacteria Many H (None) /hpf Urine Mucus Rare H (None) /hpf Urine HCG, Qual Detected (Not Detectd) 10/18/17 Range/Units 23:13 WBC 9.4 (4.0-11.0) k/uL RBC 4.28 (3.80-5.40) m/uL Hgb 12.4 (11.4-16.0) gm/dL Hct 35.3 (34.0-46.0) % MCV 82.4 (80.0-100.0) fL MCH 28.8 (25.0-35.0) pg MCHC 35.0 (31.0-37.0) g/dL RDW 12.7 (11.5-15.5) % Plt Count 313 (150-450) k/uL Neutrophils % 65 % Lymphocytes % 27 % Monocytes % 4 % Eosinophils % 3 % Basophils % 0 % Neutrophils # 6.2 (1.3-7.7) k/uL Lymphocytes # 2.6 (1.0-4.8) k/uL Monocytes # 0.4 (0-1.0) k/uL Eosinophils # 0.3 (0-0.7) k/uL Basophils # 0.0 (0-0.2) k/uL Sodium (137-145) mmol/L Potassium (3.5-5.1) mmol/L Chloride (98-107) mmol/L Carbon Dioxide (22-30) mmol/L Anion Gap mmol/L BUN (7-17) mg/dL Creatinine (0.52-1.04) mg/dL Est GFR (CKD-EPI)AfAm (>60 ml/min/1.73 sqM) Est GFR (CKD-EPI)NonAf (>60 ml/min/1.73 sqM) Glucose (74-99) mg/dL Calcium (8.4-10.2) mg/dL Total Bilirubin (0.2-1.3) mg/dL AST (14-36) U/L ALT (9-52) U/L Alkaline Phosphatase (38-126) U/L Total Protein (6.3-8.2) g/dL Albumin (3.5-5.0) g/dL Amylase (30-110) U/L Lipase (23-300) U/L Urine Color Urine Appearance (Clear) Urine pH (5.0-8.0) Ur Specific [place] (1.001-1.035) Urine Protein (Negative) Urine Glucose (UA) (Negative) Urine Ketones (Negative) Urine Blood (Negative) Urine Nitrite (Negative) Urine Bilirubin (Negative) Urine Urobilinogen (<2.0) mg/dL Ur Leukocyte Esterase (Negative) Urine RBC (0-5) /hpf Urine WBC (0-5) /hpf Ur Squamous Epith Cells (0-4) /hpf Urine Bacteria (None) /hpf Urine Mucus (None) /hpf Urine HCG, Qual (Not Detectd) Disposition Clinical Impression: Flank pain, Abdominal pain in Disposition: HOME SELF-CARE Condition: Good Instructions: Abdominal Pain in (ED) Is patient prescribed a controlled substance at d/c from ED?: No Referrals: Chris Kern MD [Primary Care Provider] - 1-2 days
[2017-10-18 23:07] LABS: Appearance,Urine Cloudy (Clear); Bacteria,Urine Many /hpf; Bilirubin,Urine Negative (Negative); Blood,Urine Negative (Negative); Color,Urine Light Yellow; Glucose,Urine (UA) Negative (Negative); Ketones,Urine Negative (Negative); Leukocyte Esterase,Urine Small (Negative); Mucus,Urine Rare /hpf; Nitrite,Urine Negative (Negative); PH, Urine 6.5 (5.0-8.0); Protein,Urine Negative (Negative); RBC,Urine 1 /hpf (0-5); Specific Gravity,Urine 1.006 (1.001-1.035); Squamous Epithelial Cell,Urine 19 /hpf (0-4); Urobilinogen,Urine <2.0 mg/dL (<2.0); WBC,Urine 4 /hpf (0-5)
[2017-10-18 23:24] LABS: Basophils % (A) 0 %; Eosinophils # (A) 0.3 k/uL (0-0.7); Eosinophils % (A) 3 %; HCT 35.3 % (34.0-46.0); HGB 12.4 gm/dL (11.4-16.0); Lymphocytes # (A) 2.6 k/uL (1.0-4.8); Lymphocytes % (A) 27 %; MCH 28.8 pg (25.0-35.0); MCV 82.4 fL (80.0-100.0); Mean Platelet Volume 6.5; Monocytes # (A) 0.4 k/uL (0-1.0); Monocytes % (A) 4 %; Neutrophils # (A) 6.2 k/uL (1.3-7.7); Neutrophils % (A) 65 %; Platelet Count 313 k/uL (150-450); RBC 4.28 m/uL (3.80-5.40); RDW 12.7 % (11.5-15.5); WBC 9.4 k/uL (4.0-11.0)
[2017-10-18 23:32] LABS: ALT 29 U/L (9-52); AST 15 U/L (14-36); Albumin 3.6 g/dL (3.5-5.0); Alkaline Phosphatase 66 U/L (38-126); Amylase 62 U/L (30-110); Anion Gap 13 mmol/L; Blood Urea Nitrogen 9 mg/dL (7-17); Calcium 9.4 mg/dL (8.4-10.2); Carbon Dioxide 22 mmol/L (22-30); Chloride 105 mmol/L (98-107); Glucose 79 mg/dL (74-99); Lipase 59 U/L (23-300); Potassium 3.7 mmol/L (3.5-5.1); Sodium 140 mmol/L (137-145); Total Bilirubin <0.1 mg/dL (0.2-1.3); Total Protein 6.4 g/dL (6.3-8.2)
[2017-10-19 00:43] VITALS: RESP 18
--- NOTE | 2017-10-19 00:48 | US ---
EXAMINATION TYPE: US OB <= 14 wk twins DATE OF EXAM: 10/19/2017 COMPARISON: NONE CLINICAL HISTORY: Pain. SOB, right flank pain, dizziness EXAM PERFORMED: Transabdominal (TA) EXAM MEASUREMENTS: GESTATIONAL AGE / DATING Physician Established: (12 weeks/1 days) EDC: 05/02/2018 Dates by LMP: Unknown Dates by First Scan: No previous here Dates by Current Scan for Baby A: (12 weeks/3 days) EDC: 04/30/2018 Dates by Current Scan for Baby B: (12 weeks/4 days) EDC: 04/29/2018 MATERNAL ANATOMY Uterus: 9.7 x 7.4 x 8.7cm, anteverted Right Ovary: 2.9 x 1.8 x 1.7cm Left Ovary: 2.9 x 1.4 x 1.9cm Post CDS / Adnexa: wnl Presence of free fluid: no Presence of corpus luteal cyst: not seen Presence of subchorionic bleed: no Presence of two separate gestational sacs: possible membrane seen GESTATION / SURVEY TWIN A CRL: 5.9cm (12 wks/3 days) Yolk Sac (normal less than 6mm): not seen Heart Rate: 165 bpm Rhythm: Normal IUP: Viable IUP TWIN B CRL: 6.0cm (12 wks/4 days) Yolk Sac (normal less than 6mm): not seen Heart Rate: 160 bpm Rhythm: Normal IUP: Viable IUP Date of LMP: Unknown Beta HcG (if available): Not available at time of exam 1.2cm hypoechoic area seen within placenta Viable twin IUP with baby A measuring 12 weeks 3 days with a heart rate of 165bpm and an estimated de livery date of 04/30/2018 and baby B measuring 12 weeks 4 days with a heart rate of 160bpm and an est imated delivery date of 04/29/2018. IMPRESSION: Diamniotic twin gestation as above. I see no complicating process.
[2017-10-19 01:37] VITALS: BP 106/57; PULSE 75; TEMP 97.8
== END 2017-10-19 01:36 | disposition home or self-care (01) ==
LOC: EC 22:04
DX: O99.89 Other specified diseases and conditions complicating pregnancy, childbirth and the puerperium (principal); R10.31 Right lower quadrant pain; Z3A.12 12 weeks gestation of pregnancy; Z88.1 Allergy status to other antibiotic agents; Z88.2 Allergy status to sulfonamides; Z87.891 Personal history of nicotine dependence
CPT/HCPCS: 36415; 76801; 76802; 80053; 81001; 81025; 82150; 83690; 85025; 99284

== ENCOUNTER 2017-12-13 20:00 | Outpatient (CLI) | payer OTHER ==
[2017-12-13 21:25] VITALS: BP 120/70; PULSE 91; RESP 16; TEMP 97.3
--- NOTE | 2017-12-16 08:34 | P.MSEPDOC ---
Presenting Problems - Arrival Data Date of Arrival on Unit: 12/13/17 Time of Arrival on Unit: 20:00 Mode of Transport: Ambulatory - Complaint OB-Reason for Admission/Chief Complaint: Other Comment: Fall Medical History - Information : 2 Para: 0 Term: 0 : 0 Abortions: Spontaneous or Elective: 0 Number of Living Children: 0 - Gestational Age Gestational Age by JUD (wks/days): 20 Weeks and 0 Days Review of Systems - Review of Systems Constitutional: No problems Breast: No problems ENT: No problems Cardiovascular: No problems Respiratory: No problems Gastrointestinal: No problems Genitourinary: No problems Musculoskeletal: No problems Neurological: No problems Skin: No problems Vital Signs - Temperature Temperature: 97.3 F Temperature Source: Temporal Artery Scan - Pulse Right Brachial Pulse Rate: 91 Pulse Assessment Method: Automatic Cuff - Respirations Respiratory Rate: 16 Oxygen Delivery Method: Room Air O2 Sat by Pulse Oximetry: 98 - Blood Pressure Right Arm Blood Pressure: 120/70 Blood Pressure Mean: 86 Blood Pressure Source: Automatic Cuff Medical Screen Scoring (Pre) - Cervical Exam Dilation: Exam Deferred Effacement: Exam Deferred Membranes: Intact - Uterine Contractions Frequency: N/A - Maternal Vital Signs Maternal Temperature: N/A Maternal Blood Pressure: N/A Signs of Preeclampsia: N/A Maternal Respirations: N/A - Pain Assessment Pain Location and Character: Left, Upper, Abdomen Pain Scale Used: Numeric (1 - 10) Pain Intensity: 3 Pain Description: *Acute Pain Frequency: Intermittent Pain Duration Units: Minutes Pain Behavior: None Exhibited Pain Aggravating Factors: None - Total Score Total Score (Pre): 0 - Level of Risk Level of Risk: Low (0-5) Physician Notification (Pre) - Physician Notified Physician Notified Date: 12/13/17 Physician Notified Time: 20:44 Physician/Practitioner Notifed:: Dr. Alejo Spoke With: Dr. Alejo New Order Received: Yes - Notification Comment Comment: Dr. Landeros given report on pt in triage. Pt c/o, fht tones, vs wnl, twin gestation. Orders recieved to d/c pt to home. To have pt follow up with the office in the am. Pt may take tylenol for discomfort and to rest for the night. To come in if any bleeding. Disposition - Disposition OB Disposition: Discharge to home Discharge Date: 12/13/17 Discharge Time: 20:52 I agree with the RN Medical Screening Exam: Yes Risk & Benefit of care provided described in d/c instruction: Yes Diagnosis: 20 WEEKS GESTATION OF
== END 2017-12-13 20:52 | disposition home or self-care (01) ==
LOC: FBPOP 20:00
PROVIDERS: ATTEND Obstetrics & Gynecology
DX: O26.892 Other specified pregnancy related conditions, second trimester (principal); R10.12 Left upper quadrant pain; Z3A.20 20 weeks gestation of pregnancy; W19.XXXD Unspecified fall, subsequent encounter
CPT/HCPCS: 99213

== ENCOUNTER 2017-12-22 22:13 | Outpatient (CLI) | payer OTHER ==
[2017-12-22 22:52] VITALS: BP 133/80; PULSE 96; RESP 16; TEMP 97.5
--- NOTE | 2018-01-30 11:45 | P.MSEPDOC ---
Presenting Problems - Arrival Data Date of Arrival on Unit: 12/22/17 Time of Arrival on Unit: 22:10 Mode of Transport: Wheelchair Vital Signs - Temperature Temperature: 97.5 F Temperature Source: Temporal Artery Scan - Pulse Right Brachial Pulse Rate: 96 Pulse Assessment Method: Automatic Cuff - Respirations Respiratory Rate: 16 Oxygen Delivery Method: Room Air O2 Sat by Pulse Oximetry: 100 - Blood Pressure Right Arm Blood Pressure: 133/80 Blood Pressure Mean: 97 Blood Pressure Source: Automatic Cuff Medical Screen Scoring (Post) - Cervical Exam Dilation: Exam Deferred Effacement: Exam Deferred Membranes: Intact - Uterine Contractions Frequency: N/A Duration: N/A Intensity: N/A - Maternal Vital Signs Maternal Temperature: N/A Signs of Preeclampsia: N/A - Pain Assessment Pain Scale Used: Numeric (1 - 10) Pain Intensity: 0 - Total Score Total Score (Post): 0 - Post Treatment Level of Risk Post Treatment Level of Risk: Low (0-5) Physician Notification (Post) - Physician Notified Physician Notified Date: 12/22/17 Physician Notified Time: 22:49 Spoke With: florencia New Order Received: Yes - Notification Comment Comment: d/c home, follow up 01/04/18 Disposition - Disposition OB Disposition: Discharge to home, Written follow up instructions reviewed Discharge Date: 12/22/17 Discharge Time: 22:55 I agree with the RN Medical Screening Exam: No Risk & Benefit of care provided described in d/c instruction: No Diagnosis: STATE, INCIDENTAL
== END 2017-12-22 22:56 | disposition home or self-care (01) ==
LOC: FBPOP 22:13
PROVIDERS: ATTEND Obstetrics & Gynecology
DX: Z33.1 Pregnant state, incidental (principal)
CPT/HCPCS: 84112; G0463; 99213

== ENCOUNTER 2018-02-08 16:35 | Outpatient (CLI) | payer OTHER ==
[2018-02-08 18:24] VITALS: BP 121/77; PULSE 100; RESP 18; TEMP 98.8
--- NOTE | 2018-03-08 00:18 | P.MSEPDOC ---
Presenting Problems - Arrival Data Date of Arrival on Unit: 02/08/18 Time of Arrival on Unit: 16:30 Mode of Transport: Ambulatory - Complaint OB-Reason for Admission/Chief Complaint: Decreased Movement, Pain Comment: Twin gestation, decreased movement and cramping since last night Medical History - Information : 1 Para: 0 Term: 0 : 0 Abortions: Spontaneous or Elective: 0 Number of Living Children: 0 - Gestational Age Gestational Age by JUD (wks/days): 28 Weeks and 1 Days - History Complications: Multiple Comment: US yesterday, small for gestational age (2-1oz and 2-4oz) per pt Review of Systems - Review of Systems Constitutional: No problems Breast: No problems ENT: No problems Cardiovascular: No problems Respiratory: No problems Gastrointestinal: No problems Genitourinary: No problems Musculoskeletal: No problems Neurological: No problems Skin: No problems Vital Signs - Temperature Temperature: 98.8 F Temperature Source: Oral - Pulse Right Sitting Brachial Pulse Rate: 100 Pulse Assessment Method: Automatic Cuff - Respirations Respiratory Rate: 18 Oxygen Delivery Method: Room Air O2 Sat by Pulse Oximetry: 97 - Blood Pressure Right Arm Sitting Blood Pressure: 121/77 Blood Pressure Mean: 91 Blood Pressure Source: Automatic Cuff Medical Screen Scoring (Pre) - Cervical Exam Dilation: 0 cm = 0 - Uterine Contractions Frequency: > 5 minutes apart = 1 Duration: > 40 seconds = 2 Intensity: N/A - Maternal Vital Signs Maternal Temperature: N/A Maternal Blood Pressure: N/A Signs of Preeclampsia: N/A Maternal Respirations: N/A - Pain Assessment Pain Location and Character: Abdomen Pain Scale Used: Numeric (1 - 10) Pain Intensity: 1 Pain Management Goal: 3 Pain Description: Cramping Pain Radiation Location: none Pain Frequency: Occasional Pain Duration: 24 Pain Duration Units: Hours Pain Behavior: None Exhibited - Maternal Trauma Maternal Trauma: N/A - Assessment Baseline FHR: 135 Heart Rate - NICHD Category: Category I (Normal) = 0 NST: Reactive Position: N/A - Total Score Total Score (Pre): 3 - Level of Risk Level of Risk: Low (0-5) Physician Notification (Pre) - Physician Notified Physician Notified Date: 02/08/18 Physician Notified Time: 17:05 Physician/Practitioner Notifed:: Dr Alejo Spoke With: Dr Alejo New Order Received: Yes - Notification Comment Comment: Oral hydration, sterile vaginal exam, send FFN. Closed/thick/-2, FFN neg. Occasional contractions. pt pain from 4 to 1/10 after po fluids. DC home. Disposition - Disposition OB Disposition: Discharge to home Discharge Date: 02/08/18 Discharge Time: 18:20 I agree with the RN Medical Screening Exam: Yes Risk & Benefit of care provided described in d/c instruction: Yes Diagnosis: DECREASED MOVEMENTS, UNSP TRIMESTER, UNSP
== END 2018-02-08 18:20 | disposition home or self-care (01) ==
LOC: FBPOP 16:35
PROVIDERS: ATTEND Obstetrics & Gynecology
DX: O36.8190 Decreased fetal movements, unspecified trimester, not applicable or unspecified (principal); Z3A.28 28 weeks gestation of pregnancy
CPT/HCPCS: 59025; 82731; G0463; 99213

== ENCOUNTER 2018-02-10 21:31 | Outpatient (CLI) | payer OTHER ==
[2018-02-10 22:45] VITALS: BP 128/81; PULSE 97; RESP 18; TEMP 98.1
--- NOTE | 2018-02-15 07:24 | P.MSEPDOC ---
Presenting Problems - Arrival Data Date of Arrival on Unit: 02/10/18 Time of Arrival on Unit: 21:30 Mode of Transport: Ambulatory - Complaint OB-Reason for Admission/Chief Complaint: Pain Comment: lower abd pain with activity, movement, position changes Medical History - Information : 1 Para: 0 Term: 0 : 0 Abortions: Spontaneous or Elective: 0 Number of Living Children: 0 - Gestational Age Gestational Age by JUD (wks/days): 28 Weeks and 2 Days - History Complications: Multiple Review of Systems - Review of Systems Constitutional: No problems Breast: No problems ENT: No problems Cardiovascular: No problems Respiratory: No problems Gastrointestinal: No problems Genitourinary: No problems Musculoskeletal: No problems Neurological: No problems Skin: No problems Vital Signs - Temperature Temperature: 98.1 F Temperature Source: Temporal Artery Scan - Pulse Right Pulse Rate: 97 Pulse Assessment Method: Pulse Oximetry - Respirations Respiratory Rate: 18 O2 Sat by Pulse Oximetry: 96 - Blood Pressure Right Arm Blood Pressure: 128/81 Blood Pressure Mean: 96 Blood Pressure Source: Automatic Cuff Medical Screen Scoring (Pre) - Cervical Exam Dilation: Exam Deferred Effacement: Exam Deferred - Uterine Contractions Frequency: > 5 minutes apart = 1 Duration: > 40 seconds = 2 Intensity: N/A - Maternal Vital Signs Maternal Temperature: N/A Maternal Blood Pressure: N/A Signs of Preeclampsia: N/A Maternal Respirations: N/A - Assessment Baseline FHR: 145 Heart Rate - NICHD Category: Category I (Normal) = 0 NST: Reactive Position: N/A - Total Score Total Score (Pre): 3 - Level of Risk Level of Risk: Low (0-5) Physician Notification (Pre) - Physician Notified Physician Notified Date: 02/10/18 Physician Notified Time: 22:12 Physician/Practitioner Notifed:: Dr Goodwin - Notification Comment Comment: reported on pts c/o abd pain with position changes and actitivy, no bleeding or leaking, +fm. reported on reactive fhts, irreg cntrx, vitals. orders to check cervix, if closed, d/c home with instructions: increase hydration, maternal support belt, return with worsening sx, pelvic rest as previously directed, keep scheduled appt in office this week. Disposition - Disposition OB Disposition: Discharge to home Discharge Date: 02/10/18 Discharge Time: 22:22 I agree with the RN Medical Screening Exam: Yes Risk & Benefit of care provided described in d/c instruction: Yes Diagnosis: UNSPECIFIED ABDOMINAL PAIN
--- NOTE | 2018-02-15 07:27 | P.MSEPDOC ---
Presenting Problems - Arrival Data Date of Arrival on Unit: 02/10/18 Time of Arrival on Unit: 21:30 Mode of Transport: Ambulatory - Complaint OB-Reason for Admission/Chief Complaint: Pain Comment: lower abd pain with activity, movement, position changes Medical History - Information : 1 Para: 0 Term: 0 : 0 Abortions: Spontaneous or Elective: 0 Number of Living Children: 0 - Gestational Age Gestational Age by JUD (wks/days): 28 Weeks and 2 Days - History Complications: Multiple Review of Systems - Review of Systems Constitutional: No problems Breast: No problems ENT: No problems Cardiovascular: No problems Respiratory: No problems Gastrointestinal: No problems Genitourinary: No problems Musculoskeletal: No problems Neurological: No problems Skin: No problems Vital Signs - Temperature Temperature: 98.1 F Temperature Source: Temporal Artery Scan - Pulse Right Pulse Rate: 97 Pulse Assessment Method: Pulse Oximetry - Respirations Respiratory Rate: 18 O2 Sat by Pulse Oximetry: 96 - Blood Pressure Right Arm Blood Pressure: 128/81 Blood Pressure Mean: 96 Blood Pressure Source: Automatic Cuff Medical Screen Scoring (Pre) - Cervical Exam Dilation: Exam Deferred Effacement: Exam Deferred - Uterine Contractions Frequency: > 5 minutes apart = 1 Duration: > 40 seconds = 2 Intensity: N/A - Maternal Vital Signs Maternal Temperature: N/A Maternal Blood Pressure: N/A Signs of Preeclampsia: N/A Maternal Respirations: N/A - Assessment Baseline FHR: 145 Heart Rate - NICHD Category: Category I (Normal) = 0 NST: Reactive Position: N/A - Total Score Total Score (Pre): 3 - Level of Risk Level of Risk: Low (0-5) Physician Notification (Pre) - Physician Notified Physician Notified Date: 02/10/18 Physician Notified Time: 22:12 Physician/Practitioner Notifed:: Dr Goodwin - Notification Comment Comment: reported on pts c/o abd pain with position changes and actitivy, no bleeding or leaking, +fm. reported on reactive fhts, irreg cntrx, vitals. orders to check cervix, if closed, d/c home with instructions: increase hydration, maternal support belt, return with worsening sx, pelvic rest as previously directed, keep scheduled appt in office this week. Disposition - Disposition OB Disposition: Physician follow up in office, Discharge to home Discharge Date: 02/10/18 Discharge Time: 22:22 I agree with the RN Medical Screening Exam: Yes Risk & Benefit of care provided described in d/c instruction: Yes Diagnosis: FALSE LABOR BEFORE 37 COMPLETED WEEKS OF GEST, THIRD TRI
== END 2018-02-10 22:22 | disposition home or self-care (01) ==
LOC: FBPOP 21:31
PROVIDERS: ATTEND Obstetrics & Gynecology
DX: O47.03 False labor before 37 completed weeks of gestation, third trimester (principal); Z3A.28 28 weeks gestation of pregnancy
CPT/HCPCS: 59025; G0463; 99213

== ENCOUNTER 2018-02-15 15:37 | Outpatient (CLI) | payer OTHER ==
[2018-02-15] MEDS ORDERED: BETAMET ACET-BETAMETH SOD PHOS 6 MG/ML VIAL IM SCH (15:45)
--- NOTE | 2018-04-07 07:53 | P.MSEPDOC ---
Presenting Problems - Arrival Data Date of Arrival on Unit: 02/15/18 Time of Arrival on Unit: 15:37 Mode of Transport: Ambulatory - Complaint OB-Reason for Admission/Chief Complaint: [place] Injection Medical History - Information : 1 Para: 0 Term: 0 : 0 Abortions: Spontaneous or Elective: 0 Number of Living Children: 0 - Gestational Age Gestational Age by JUD (wks/days): 29 Weeks and 1 Days - History Complications: Multiple Review of Systems - Review of Systems Constitutional: No problems Breast: No problems ENT: No problems Cardiovascular: No problems Genitourinary: No problems Musculoskeletal: No problems Neurological: No problems Skin: No problems Vital Signs - Comment Vital Signs Comment: order per Dr Goodwin not to do vitals. Medical Screen Scoring (Pre) - Cervical Exam Dilation: Exam Deferred Effacement: Exam Deferred - Uterine Contractions Frequency: N/A Duration: N/A Intensity: N/A - Maternal Vital Signs Maternal Temperature: N/A Maternal Blood Pressure: N/A Signs of Preeclampsia: N/A Maternal Respirations: N/A - Maternal Trauma Maternal Trauma: N/A - Total Score Total Score (Pre): 0 - Level of Risk Level of Risk: N/A Physician Notification (Pre) - Notification Comment Comment: no notification necessary, pt only here for injection. Disposition - Disposition OB Disposition: Discharge to home Discharge Date: 02/15/18 Discharge Time: 15:50 I agree with the RN Medical Screening Exam: Yes Risk & Benefit of care provided described in d/c instruction: Yes Diagnosis: FALSE LABOR BEFORE 37 COMPLETED WEEKS OF GEST, THIRD TRI
== END 2018-02-15 15:50 | disposition home or self-care (01) ==
LOC: FBPOP 15:37
PROVIDERS: ATTEND Obstetrics & Gynecology
DX: O47.03 False labor before 37 completed weeks of gestation, third trimester (principal); Z3A.29 29 weeks gestation of pregnancy
CPT/HCPCS: 96372; J0702

== ENCOUNTER 2018-02-16 15:38 | Outpatient (CLI) | payer OTHER ==
[2018-02-16] MEDS ORDERED: BETAMET ACET-BETAMETH SOD PHOS 6 MG/ML VIAL IM SCH (16:15)
[2018-02-16 17:40] VITALS: BP 117/73; PULSE 99; RESP 16; TEMP 98
--- NOTE | 2018-03-04 09:36 | P.MSEPDOC ---
Presenting Problems - Arrival Data Date of Arrival on Unit: 02/16/18 Time of Arrival on Unit: 15:45 Mode of Transport: Ambulatory - Complaint OB-Reason for Admission/Chief Complaint: Decreased Movement, Celestone Injection Comment: 2nd injection Medical History - Information : 1 Para: 0 Term: 0 : 0 Abortions: Spontaneous or Elective: 0 Number of Living Children: 0 - History Complications: Other Comment: twins. 29 2/7 weeks Review of Systems - Review of Systems Constitutional: No problems Breast: No problems ENT: No problems Cardiovascular: No problems Respiratory: No problems Gastrointestinal: No problems Genitourinary: No problems Musculoskeletal: No problems Neurological: No problems Skin: No problems Vital Signs - Temperature Temperature: 98.0 F Temperature Source: Oral - Pulse Right Radial Pulse Rate: 99 Pulse Assessment Method: Automatic Cuff - Respirations Respiratory Rate: 16 Oxygen Delivery Method: Room Air O2 Sat by Pulse Oximetry: 98 - Blood Pressure Right Arm Blood Pressure: 117/73 Blood Pressure Mean: 87 Blood Pressure Source: Automatic Cuff Medical Screen Scoring (Pre) - Cervical Exam Dilation: Exam Deferred Effacement: Exam Deferred - Uterine Contractions Frequency: N/A Duration: N/A Intensity: N/A - Maternal Vital Signs Maternal Temperature: N/A Maternal Blood Pressure: N/A Signs of Preeclampsia: N/A Maternal Respirations: N/A - Pain Assessment Pain Scale Used: Numeric (1 - 10) Pain Intensity: 0 - Maternal Trauma Maternal Trauma: N/A - Assessment Heart Rate - NICHD Category: Category I (Normal) = 0 NST: Reactive Position: N/A Station: N/A - Total Score Total Score (Pre): 0 - Level of Risk Level of Risk: N/A Physician Notification (Pre) - Physician Notified Physician Notified Date: 02/16/18 Physician Notified Time: 15:45 Physician/Practitioner Notifed:: dakota Spoke With: dakota New Order Received: Yes (nst) - Notification Comment Comment: reactive nst's on both twins. Disposition - Disposition OB Disposition: Discharge to home Discharge Date: 02/16/18 Discharge Time: 16:45 I agree with the RN Medical Screening Exam: Yes Risk & Benefit of care provided described in d/c instruction: Yes Diagnosis: DECREASED MOVEMENTS, THIRD TRIMESTER, FETUS 1
== END 2018-02-16 16:45 | disposition home or self-care (01) ==
LOC: FBPOP 15:38
PROVIDERS: ATTEND Obstetrics & Gynecology
DX: O36.8131 Decreased fetal movements, third trimester, fetus 1 (principal); Z3A.00 Weeks of gestation of pregnancy not specified
CPT/HCPCS: 59025; 96372; G0463; J0702; 99214

== ENCOUNTER 2018-03-13 00:18 | Outpatient (CLI) | payer OTHER ==
[2018-03-13 01:05] VITALS: BP 131/82; PULSE 95; RESP 16; TEMP 98.8
[2018-03-13 01:18] LABS: Appearance,Urine Cloudy (Clear); Bacteria,Urine Occasional /hpf; Bilirubin,Urine Negative (Negative); Blood,Urine Negative (Negative); Color,Urine Yellow; Glucose,Urine (UA) Negative (Negative); Ketones,Urine Negative (Negative); Leukocyte Esterase,Urine Trace (Negative); Mucus,Urine Rare /hpf; Nitrite,Urine Negative (Negative); PH, Urine 6.5 (5.0-8.0); Protein,Urine Negative (Negative); Specific Gravity,Urine 1.018 (1.001-1.035); Squamous Epithelial Cell,Urine 8 /hpf (0-4); Urobilinogen,Urine <2.0 mg/dL (<2.0); WBC,Urine 2 /hpf (0-5)
--- NOTE | 2018-04-07 01:44 | P.MSEPDOC ---
Presenting Problems - Arrival Data Date of Arrival on Unit: 03/13/18 Time of Arrival on Unit: 00:18 Mode of Transport: Ambulatory - Complaint OB-Reason for Admission/Chief Complaint: Pain Comment: Pt c/o of pain that extends from lower neck into shoulder and pelvic pain. Medical History - Information : 1 Para: 0 Term: 0 : 0 Abortions: Spontaneous or Elective: 0 Number of Living Children: 0 - Gestational Age Gestational Age by JUD (wks/days): 32 Weeks and 6 Days - History Complications: Multiple Review of Systems - Review of Systems Constitutional: No problems Breast: No problems ENT: No problems Cardiovascular: No problems Respiratory: No problems Gastrointestinal: No problems Genitourinary: No problems Musculoskeletal: No problems Neurological: No problems Skin: No problems Vital Signs - Temperature Temperature: 98.8 F Temperature Source: Temporal Artery Scan - Pulse Right Brachial Pulse Rate: 95 Pulse Assessment Method: Automatic Cuff - Respirations Respiratory Rate: 16 Oxygen Delivery Method: Room Air O2 Sat by Pulse Oximetry: 97 - Blood Pressure Right Arm Blood Pressure: 131/82 Blood Pressure Mean: 98 Blood Pressure Source: Automatic Cuff Medical Screen Scoring (Pre) - Cervical Exam Dilation: Exam Deferred Effacement: Exam Deferred Membranes: Intact - Uterine Contractions Frequency: > 5 minutes apart = 1 - Maternal Vital Signs Maternal Temperature: N/A Maternal Blood Pressure: N/A Signs of Preeclampsia: Headache = 1 - Pain Assessment Pain Location and Character: Head, Neck Pain Scale Used: Numeric (1 - 10) Pain Intensity: 7 Pain Description: *Acute, Shooting, Stinging Pain Frequency: Intermittent Pain Behavior: None Exhibited - Assessment Baseline FHR: 150 Heart Rate - NICHD Category: Category I (Normal) = 0 NST: Reactive - Total Score Total Score (Pre): 2 - Level of Risk Level of Risk: Low (0-5) Physician Notification (Pre) - Physician Notified Physician Notified Time: 01:23 Physician/Practitioner Notifed:: Dr. Alejo Spoke With: Dr. Alejo New Order Received: Yes - Notification Comment Comment: Dr. Alejo called and read back pt UA results. Orders recieved to d/ c pt to home. Disposition - Disposition OB Disposition: Discharge to home Discharge Date: 03/13/18 Discharge Time: 01:31 I agree with the RN Medical Screening Exam: Yes Risk & Benefit of care provided described in d/c instruction: Yes Diagnosis: LOW BACK PAIN
== END 2018-03-13 01:31 | disposition home or self-care (01) ==
LOC: FBPOP 00:18
PROVIDERS: ATTEND Obstetrics & Gynecology
DX: O99.89 Other specified diseases and conditions complicating pregnancy, childbirth and the puerperium (principal); M54.5 Low back pain; Z3A.32 32 weeks gestation of pregnancy
CPT/HCPCS: 59025; 81001; G0463; 99213

== ENCOUNTER 2018-03-21 22:44 | Observation (INO) | payer OTHER ==
[2018-03-21] MEDS ORDERED: LACTATED RINGERS 1,000 ML IV SCH (23:30)
[2018-03-21 23:59] VITALS: BMI 38.9
[2018-03-22] MEDS ORDERED: LACTATED RINGERS 1,000 ML IV SCH
[2018-03-22 00:44] LABS: Basophils % (A) 0 %; Eosinophils # (A) 0.1 k/uL (0-0.7); Eosinophils % (A) 1 %; HCT 37.3 % (34.0-46.0); HGB 12.5 gm/dL (11.4-16.0); Lymphocytes % (A) 22 %; MCH 29.2 pg (25.0-35.0); MCHC 33.4 g/dL (31.0-37.0); MCV 87.5 fL (80.0-100.0); Mean Platelet Volume 7.5; Monocytes # (A) 0.5 k/uL (0-1.0); Monocytes % (A) 5 %; Neutrophils # (A) 6.2 k/uL (1.3-7.7); Neutrophils % (A) 69 %; Platelet Count 245 k/uL (150-450); RBC 4.27 m/uL (3.80-5.40); RDW 14.1 % (11.5-15.5); WBC 8.9 k/uL (3.8-10.6)
[2018-03-22 00:58] LABS: Appearance,Urine Clear (Clear); Bilirubin,Urine Negative (Negative); Blood,Urine Negative (Negative); Color,Urine Yellow; Glucose,Urine (UA) Negative (Negative); Ketones,Urine Negative (Negative); Leukocyte Esterase,Urine Negative (Negative); Nitrite,Urine Negative (Negative); PH, Urine 6.5 (5.0-8.0); Protein,Urine Negative (Negative); Specific Gravity,Urine 1.012 (1.001-1.035); Urobilinogen,Urine <2.0 mg/dL (<2.0)
[2018-03-22 00:59] VITALS: RESP 16
[2018-03-22 01:11] LABS: ALT 24 U/L (9-52); AST 16 U/L (14-36); Blood Urea Nitrogen 8 mg/dL (7-17); LDH 429 U/L (313-618); Uric Acid 6.6 mg/dL (3.7-7.4)
[2018-03-22 03:31] VITALS: TEMP 98.1
--- NOTE | 2018-03-22 07:51 | P.DS ---
Providers Date of admission: 03/21/18 23:26 Expected date of discharge: 03/22/18 Attending physician: Latanya Goodwin [facility] Course: This is a 22-year-old white female 1 para 0 EDC 05/02/2018 at 34 and one sevenths weeks' gestation. Patient has a known twin gestation, both babies severe IUGR. She has been followed with weekly biophysical profiles and SD ratios, twice weekly NST testing. Testing in the office yesterday was reassuring. Patient presented with increased pelvic pressure for evaluation. Please see dictated history and physical for details. Blood pressure on admission was slightly high at 137/93. Blood pressures have normalized. Labs have been drawn, all of which have been normal with the exception of a slightly elevated uric acid. This morning the patient feels well. Both babies are active. She denies vaginal bleeding or fluid leakage. Cervix this morning is 1 cm dilated, 80% effaced, posterior, vertex, -2 station. Both babies are active with reactive NSTs 2. Patient states that her pressure has been alleviated and she feels well for discharge home. Patient is being discharged home at this time. She will follow-up with me in the office tomorrow. Signs and symptoms of labor have been reviewed. She will call or return with any vaginal bleeding, fluid leakage, uterine contractions, increased pelvic pressure, decreased movement, or any other symptoms or complaints. Patient Condition at Discharge: Good Plan - Discharge Summary Discharge Rx Participant: No New Discharge Prescriptions: No Action Pnv,Calcium 72/Iron/Folic Acid [ Plus Tablet] 1 tab PO DAILY Discharge Medication List Pnv,Calcium 72/Iron/Folic Acid [ Plus Tablet] 1 tab PO DAILY 10/04/17 [ History] Follow up Appointment(s)/Referral(s): Latanya Goodwin MD [STAFF PHYSICIAN] - 1-2 Days Discharge Disposition: HOME SELF-CARE
[2018-03-22 08:08] VITALS: BP 134/80; PULSE 102
--- NOTE | 2018-03-22 09:45 | P.HPOB ---
History of Present Illness H&P Date: 03/21/18 Chief Complaint: vaginal pain, elevated BP This is a 22 yo at 35 0/7 weeks that presents with c/o cramping and vaginal pain after a BM. she states she had a BM and then noticed a large amount of vaginal d/c mucus in nature and then vaginal pain. she was also having cramping. she tried to hydrate herself at home without relief of the cramping and then presented to OB. she denies any VB, LOF. she is noting good FM x 2. she has had routine PNC with Dr. Goodwin and is being followed closely for tein gestation and noted IUGR with reassuring testing. on initial VS BP was noted to be elevated 140's/90's. she denies any FISHER visual changes. Review of Systems Constitutional: Reports fatigue, Denies chills, Denies fever Ears, nose, mouth and throat: Denies headache Cardiovascular: Reports edema Respiratory: Denies dyspnea Gastrointestinal: Reports constipation, Denies diarrhea, Denies nausea, Denies vomiting Genitourinary: Reports Past Medical History Past Medical History: No Reported History Additional Past Medical History / Comment(s): frequent UTI's History of Any Multi-Drug Resistant Organisms: None Reported Past Surgical History: Adenoidectomy, Tonsillectomy Additional Past Surgical History / Comment(s): under age of 11 Past Anesthesia/Blood Transfusion Reactions: No Reported Reaction Past Psychological History: Anxiety, Depression Additional Psychological History / Comment(s): not currently medicated with Smoking Status: Never smoker Past Alcohol Use History: None Reported Past Drug Use History: None Reported - Past Family History Mother Family Medical History: No Reported History Medications and Allergies Home Medications Medication Instructions Recorded Confirmed Type Pnv,Calcium 72/Iron/Folic Acid 1 tab PO DAILY 10/04/17 03/21/18 History [ Plus Tablet] Allergies Allergy/AdvReac Type Severity Reaction Status Date / Time Sulfa (Sulfonamide Allergy Anaphylaxis Verified 03/21/18 22:59 Antibiotics) sulfamethoxazole Allergy Rash/Hives Verified 03/21/18 22:59 [From Bactrim] trimethoprim [From Bactrim] Allergy Rash/Hives Verified 03/21/18 22:59 Exam Osteopathic Statement: *. No significant issues noted on an osteopathic structural exam other than those noted in the History and Physical/Consult. Vital Signs Temp Pulse Resp BP Pulse Ox 03/22/18 08:00 98.1 F 102 H 16 134/80 03/22/18 03:22 98.1 F 80 16 125/78 03/22/18 02:00 91 16 121/73 03/22/18 00:58 75 16 128/77 03/22/18 00:06 98.5 F 03/22/18 00:00 99.1 F 76 18 139/84 03/21/18 23:49 98.8 F 90 18 149/86 98 03/21/18 23:18 98.8 F 90 18 137/93 98 03/21/18 23:07 149/86 03/21/18 23:00 92 145/84 97 03/21/18 22:53 137/93 Intake and Output 03/21/18 03/22/18 03/22/18 22:59 06:59 14:59 Intake Total 1000 700 Balance 1000 700 Intake: Intake, IV Titration 1000 700 Amount Lactated Ringers 1,000 ml 700 @ 125 mls/hr IV .Q8H MATT Rx#:[id number] Lactated Ringers 1,000 ml 1000 @ 999 mls/hr IV .Q1H1M MATT Rx#:[id number] Other: # Voids 1 Weight 99.79 kg 99.79 kg FHTs noted to be reactive x 2 with contractions q 7 minutes. - OBG Physical Exam Abdomen: gravid an appropriate for GA given her twin gestation Cervix: 1/80/-3 Uterus: enlarged Results Result Diagrams: 03/22/18 00:09 03/22/18 00:09 Assessment and Plan (1) Twin Status: Acute Code(s): O30.009 - TWIN , UNSP NUM PLCNTA & AMNIO SACS , UNSP TRIMESTER SNOMED Code(s): 50904870 (2) Monochorionic diamniotic twin gestation Status: Acute Code(s): O30.039 - TWIN , MONOCHORIONIC/DIAMNIOTIC, UNSP TRIMESTER SNOMED Code(s): 69353098 (3) IUGR (intrauterine growth restriction) Status: Acute Code(s): HQR9508 - SNOMED Code(s): 81504985 (4) contractions Status: Acute Code(s): O47.9 - FALSE LABOR, UNSPECIFIED SNOMED Code(s): 715900732 Plan: givne her elevated BP, PIH labs are drawn and FFN obtained in addition given she is michel q 7 mins. she appears comfortable and not in labor, we will hydrate with IVF and continue to monitor closely overnight. if no change and BP improve consider D/C in the am.
== END 2018-03-22 08:05 | disposition home or self-care (01) ==
LOC: FBPOP 22:44 → 4FBP 23:26
PROVIDERS: ADMIT Obstetrics & Gynecology Obstetrics; ATTEND Obstetrics & Gynecology
DX: O60.03 Preterm labor without delivery, third trimester (principal); O36.5930 Maternal care for other known or suspected poor fetal growth, third trimester, not applicable or unspecified; O30.033 Twin pregnancy, monochorionic/diamniotic, third trimester; Z3A.35 35 weeks gestation of pregnancy; Z86.59 Personal history of other mental and behavioral disorders; Z87.440 Personal history of urinary (tract) infections
CPT/HCPCS: 59025; 96360; 82731; 82565; 83615; 84450; 84460; 84520; 84550; 85025; 81003; G0463; G0378 ×2; 99213

== ENCOUNTER 2018-04-06 05:53 | Inpatient (IN) | payer OTHER ==
[2018-04-06] MEDS ORDERED: OXYTOCIN 10 UNIT/ML 1 ML VIAL IM PRN (06:41)
[2018-04-06] MEDS ORDERED: LIDOCAINE 1% INJ 10MG/ML (20 ML MDV) SQ PRN (06:41)
[2018-04-06] MEDS ORDERED: CARBOPROST TROMETHAMINE 250 MCG/ML 1 ML AMP IM PRN (06:41)
[2018-04-06] MEDS ORDERED: TERBUTALINE 1 MG/ML VIAL SQ PRN (06:41)
[2018-04-06] MEDS ORDERED: METHYLERGONOVINE 0.2 MG/ML 1 ML AMP IM PRN (06:41)
[2018-04-06] MEDS ORDERED: OXYTOCIN 20 UNITS/1000 ML NS 1,000 ML IV SCH (06:45)
[2018-04-06] MEDS: LACTATED RINGERS 1,000 ML IV SCH ×2 (06:48→10:51)
[2018-04-06 07:04] LABS: Basophils % (A) 0 %; Eosinophils # (A) 0.2 k/uL (0-0.7); Eosinophils % (A) 2 %; HCT 39.7 % (34.0-46.0); HGB 13.7 gm/dL (11.4-16.0); Lymphocytes # (A) 2.1 k/uL (1.0-4.8); Lymphocytes % (A) 19 %; MCH 30.2 pg (25.0-35.0); MCHC 34.6 g/dL (31.0-37.0); MCV 87.1 fL (80.0-100.0); Mean Platelet Volume 8.1; Monocytes # (A) 0.4 k/uL (0-1.0); Monocytes % (A) 4 %; Neutrophils % (A) 74 %; Platelet Count 250 k/uL (150-450); RBC 4.56 m/uL (3.80-5.40); RDW 14.9 % (11.5-15.5); WBC 10.7 k/uL (3.8-10.6)
--- NOTE | 2018-04-06 07:30 | P.HPOB ---
History of Present Illness H&P Date: 04/06/18 This is a 22-year-old white female 1 para 0 EDC 05/02/2018 at 36-2/7 weeks' gestation. Patient presents this morning with known monochorionic, diamniotic twins, both with severe IUGR. Recommendation from maternal- medicine is for delivery at 36 weeks. Both fetuses had been followed very carefully through the office with weekly S/D ratios, biophysical profiles, and twice weekly NSTs. Steroids have been received. Both infants are active this morning. Patient denies vaginal bleeding, fluid leakage, or uterine contractions. Past medical history is unremarkable. Past surgical history adenoidectomy and tonsillectomy, wisdom teeth extracted. Current medications vitamins daily. ALLERGIES include sulfa drugs to which she reports an anaphylactic response. Family history is significant for hypertension, diabetes, borderline personality disorder. Social history patient is single, her boyfriend Lisandro is involved, she has never been a smoker, she is a student, she denies alcohol or drug use. Obstetric history is significant for blood type A+, rubella status nonimmune. VDRL testing negative. Urine cultures positive for group B strep, treated with antibiotics, repeat urine culture negative. HIV testing, hepatitis B surface antigen, gonorrhea and chlamydia cultures all negative. One-hour Glucola 120. On exam this is a pleasant white female, she is 5 foot 2 inches, 230 pounds, blood pressure 127/84, pulse 93. The general physical exam is within normal limits. The chest is clear in all busch. The extremities reveal trace edema. Cervix is 2 cm dilated, 80% effaced, -2 station, vertex presentation. Twins are vertex vertex sonographically. Artificial amniorrhexis of a reveals clear fluid. Internal scalp lead is applied. heart rates are consistent with reactive NSTs 2. Impression: 36-2/7 weeks intrauterine , known monochorionic, diamniotic twins, no severe IUGR 2. Positive group B strep culture of the urine earlier in . Maternal- medicine recommendation is for induction at 36 weeks. At this time all signs are reassuring. Plan: Penicillin G prophylaxis per hospital protocol. Oxytocin per hospital protocol. Continue close maternal and surveillance. We will deliver in the back under double setup with the anesthesia and ultrasound services available. Patient understands the variables in delivering twins, and consents to vaginal delivery of breech be if the baby should change position during the course of labor. Anesthesia and pediatric teams aware. Review of Systems Negative except as in HPI Past Medical History Past Medical History: No Reported History Additional Past Medical History / Comment(s): frequent UTI's History of Any Multi-Drug Resistant Organisms: None Reported Past Surgical History: Adenoidectomy, Tonsillectomy Additional Past Surgical History / Comment(s): under age of 11 Past Anesthesia/Blood Transfusion Reactions: No Reported Reaction Past Psychological History: Anxiety, Depression Additional Psychological History / Comment(s): not currently medicated with Smoking Status: Never smoker Past Alcohol Use History: None Reported Past Drug Use History: None Reported - Past Family History Mother Family Medical History: No Reported History Medications and Allergies Home Medications Medication Instructions Recorded Confirmed Type Pnv,Calcium 72/Iron/Folic Acid 1 tab PO DAILY 10/04/17 04/06/18 History [ Plus Tablet] Allergies Allergy/AdvReac Type Severity Reaction Status Date / Time Sulfa (Sulfonamide Allergy Anaphylaxis Verified 04/06/18 06:14 Antibiotics) sulfamethoxazole Allergy Rash/Hives Verified 04/06/18 06:14 [From Bactrim] trimethoprim [From Bactrim] Allergy Rash/Hives Verified 04/06/18 06:14 Exam Intake and Output 04/05/18 04/06/18 04/06/18 22:59 06:59 14:59 Other: Weight 104.326 kg See dictation under HPI please Results Result Diagrams: 04/06/18 06:40 Abnormal Lab Results - Last 24 Hours (Table) 04/06/18 Range/Units 06:40 WBC 10.7 H (3.8-10.6) k/uL Neutrophils # 8.0 H (1.3-7.7) k/uL Assessment and Plan Assessment: 36-2/7 weeks intrauterine , known twin gestation, severe IUGR 2 with less than 3rd percentile estimated weights, recommendation per maternal medicine for delivery at 36 weeks. Vertex vertex presentations. Plan: Oxytocin per hospital protocol. Penicillin G per hospital protocol. Continue close maternal and surveillance. Anesthesia and pediatric teams aware. Plan is for delivery vaginally under double setup, the patient does consent to breech vaginal delivery should baby B change position during the course of labor. She also consents to section if indicated by either maternal or progress. Time with Patient: Greater than 30
[2018-04-06] MEDS ORDERED: PENICILLIN G POTASSIUM 5,000,000 UNIT in DEXTROSE 5% IN WATER 100 ML IVPB STA ×2 (07:34)
[2018-04-06] MEDS ORDERED: BUTORPHANOL 1 MG/ML 1 ML VIAL IV PRN (07:35)
[2018-04-06 08:03] VITALS: BMI 42.0
[2018-04-06] MEDS ORDERED: ROPIVACAINE 100 MG, fentaNYL (PF) 200 MCG in SODIUM CHLORIDE 0.9% 76 ML EPIDURAL ONE (11:34)
[2018-04-06] MEDS: PENICILLIN G POTASSIUM 2,500,000 UNIT in DEXTROSE 5% IN WATER 100 ML IVPB SCH ×6 (12:27→22:11)
[2018-04-06] MEDS ORDERED: CITRIC ACID-SODIUM CITRATE 15 ML CUP PO ONE (15:23)
[2018-04-06] MEDS ORDERED: ONDANSETRON 4 MG/2 ML VIAL ONE (15:46)
[2018-04-06] MEDS ORDERED: OXYTOCIN 10 UNIT/ML 1 ML VIAL ONE (15:46)
[2018-04-06] MEDS ORDERED: NALBUPHINE 10 MG/ML VIAL (10ML MDV) ONE (15:46)
[2018-04-06] MEDS ORDERED: MORPHINE SULFATE (PF) 0.3 MG/0.3 ML SYR ONE (15:46)
[2018-04-06] MEDS ORDERED: KETOROLAC 30 MG/ML 1 ML VIAL ONE (15:46)
[2018-04-06] MEDS ORDERED: diphenhydrAMINE 50 MG CAP PO PRN (16:30)
[2018-04-06] MEDS ORDERED: diphenhydrAMINE 25 MG CAP PO PRN (16:30)
[2018-04-06] MEDS ORDERED: METOCLOPRAMIDE 5 MG/ML 2 ML VIAL IVP PRN (16:30)
[2018-04-06] MEDS ORDERED: ONDANSETRON 4 MG/2 ML VIAL IVP PRN (16:30)
[2018-04-06] MEDS ORDERED: NALOXONE 0.4 MG/ML 1 ML VIAL IV PRN (16:30)
[2018-04-06] MEDS ORDERED: LACTATED RINGERS 1,000 ML IV SCH (16:30)
[2018-04-06] MEDS ORDERED: MEASLES-MUMPS-RUBELLA VACC/PF 12,500 UNIT/0.5 ML VIAL SQ ONE (16:30)
[2018-04-06] MEDS ORDERED: ZOLPIDEM 5 MG TAB PO PRN (16:30)
[2018-04-06] MEDS ORDERED: ACETAMINOPHEN TAB 325 MG TAB PO PRN (16:30)
[2018-04-06] MEDS ORDERED: diphenhydrAMINE 50 MG/ML 1 ML VIAL IVP PRN ×2 (16:30)
--- NOTE | 2018-04-06 16:30 | P.OP ---
Date of Procedure: 04/06/18 Preoperative Diagnosis: Monochorionic diamnionic twin , severe IUGR both babies, 36-2/7 weeks' gestation, nonreassuring heart tones baby A Postoperative Diagnosis: Same, normal-appearing ovaries and tubes. Procedure(s) Performed: Primary low transverse section Anesthesia: epidural Surgeon: Latanya Goodwin Material Control Analyst #1: Jalyn Alejo Estimated Blood Loss (ml): 600 IV fluids (ml): 1,000 Urine output (ml): 50 Pathology: other (Placenta) Condition: stable Disposition: PACU Description of Procedure: Patient presented for induction of labor at 36-2/7 weeks' gestation, by recommendation of maternal medicine consultation. She has known twins, both severe IUGR, less than 3rd percentile. testing has been reassuring, please see dictated history and physical for details. Artificial amniorrhexis of twin A revealed clear fluid, scalp lead was placed. Oxytocin was started and titrated per hospital protocol. Antibiotics were given for history of positive group B strep in the urine earlier in the . 2 doses of penicillin received. Patient became 4 cm dilated, but again to have persistent deep variable decelerations of twin A, from a baseline of 150s into the 70s to 90s range. Decision was made to proceed with primary low transverse section. Patient is brought to the operating room and the epidural was "topped off". She is placed in the dorsal supine position with left lateral uterine displacement. Martinez catheter placed to direct drainage. Appropriate timeout is performed to assure proper patient and procedural identification. Analgesia is checked and noted to be adequate. A low transverse skin incision is made and this is carried down through the subcutaneous tissue to the fascia. Fascia is isolated, scored and extended bilaterally with curved Estevez scissors. Peritoneum is next identified and incised, there is no bowel or bladder involvement. Bladder blade is placed over the dome of the bladder and at all times the bladder is Well from the operative field to avoid bladder and/or ureteral injury. A low transverse uterine incision is made in this is carried down through the myometrium into the endometrial cavity. Infant A's head is delivered in the vertex position. There is no nuchal cord noted. Official time of baby A is 1556 hours. Umbilical cord is doubly clamped and ligated, he is handed to waiting nurses for evaluation where scores of 9 and 9 at one and 5 minutes respectively are given. weighs 1810 g or 4 lbs. 0 oz. Artificial amniorrhexis of baby B reveals clear fluid. Baby B is also delivered in the vertex presentation at 1559 hours. Umbilical cord is doubly clamped and ligated, he is also handed to waiting nurses for evaluation where scores of 7 and 9 at one and 5 minutes respectively are given. He weighed 4 lbs. 4 oz. or 19 45 g. The placenta is delivered manually, it is inspected and noted to be intact with trivascular cord. It is sent to pathology for evaluation. The uterus is then externalized and massaged. It is wiped clean with a wet sponge to avoid any retained products of conception. The uterine incision is grasped with Fuller clamps. The uterus is closed in a two-step fashion, first layer 0 Vicryl in a running manner, second layer 0 Vicryl in an imbricated layer. Excellent reapproximation is noted. Bilateral tubes and ovaries are inspected and noted to be normal. Uterus is suctioned with suction on guard. Uterus is gently placed back into the abdominal cavity. Bilateral gutters are inspected and cleaned. Peritoneum is allowed to close by secondary intention. Fascia is closed in a running stitch of 0 Vicryl, excellent reapproximation. Subcutaneous tissue is irrigated, noted to be clean and dry. It is reapproximated with 2-0 Vicryl in a running manner. 4-0 undyed Vicryl issues for final skin closure. Steri- Strips and Mastisol are applied to the wound. Abdominal binder is placed. Duramorph is given in the epidural prior to discontinuing. Patient is brought back to recovery room in excellent condition with stable vital signs including blood pressure 119/64, pulse 91, 96% O2 saturation on room air. Patient and her significant other are requesting circumcision further sons.
[2018-04-06] MEDS: SENNOSIDES-DOCUSATE SODIUM 1 EACH TAB PO SCH (22:11)
[2018-04-07] MEDS: KETOROLAC 30 MG/ML 1 ML VIAL IVP PRN ×3 (00:50→15:33)
[2018-04-07] MEDS: LACTATED RINGERS 1,000 ML IV SCH ×3 (02:35→21:37)
[2018-04-07 06:50] LABS: Basophils % (A) 0 %; Eosinophils # (A) 0.1 k/uL (0-0.7); Eosinophils % (A) 1 %; HCT 37.5 % (34.0-46.0); HGB 12.5 gm/dL (11.4-16.0); Lymphocytes # (A) 2.2 k/uL (1.0-4.8); Lymphocytes % (A) 18 %; MCH 29.4 pg (25.0-35.0); MCHC 33.2 g/dL (31.0-37.0); MCV 88.4 fL (80.0-100.0); Mean Platelet Volume 7.7; Monocytes # (A) 0.4 k/uL (0-1.0); Monocytes % (A) 3 %; Neutrophils # (A) 9.3 k/uL (1.3-7.7); Neutrophils % (A) 76 %; Platelet Count 243 k/uL (150-450); RBC 4.25 m/uL (3.80-5.40); RDW 15.2 % (11.5-15.5); WBC 12.2 k/uL (3.8-10.6)
--- NOTE | 2018-04-07 07:21 | P.PN ---
Subjective Progress Note Date: 04/07/18 Principal diagnosis: Postoperative day #1 Slept well. Pain well controlled. No complaints. Objective - Vital Signs Vital signs: Vital Signs Temp 98.4 F 04/07/18 04:00 Pulse 82 04/07/18 04:00 Resp 16 04/07/18 04:00 BP 122/79 04/07/18 04:00 Pulse Ox 96 04/07/18 00:00 Intake & Output 04/06/18 04/07/18 04/07/18 18:59 06:59 18:59 Intake Total 28.85 Output Total 850 600 Balance -821.15 -600 Intake: Intake, IV Titration 28.85 Amount Oxytocin 20 Units/1000 ml 28.85 Ns 1,000 ml @ 1 MILLIUNIT/MIN 3 mls/hr IV .Q24H MATT Rx#:[id number] Output: Urine 250 600 Uretheral (Martinez) 600 Estimated Blood Loss 600 Other: Voiding Method Indwelling Catheter - Constitutional General appearance: Present: average body habitus, cooperative - EENT Eyes: Present: PERRLA ENT: Present: hearing grossly normal - Respiratory Respiratory: bilateral: CTA - Cardiovascular Rhythm: regular - Gastrointestinal General gastrointestinal: Present: normal bowel sounds - Integumentary Integumentary Comment(s): Incision clean and dry, intact, Steri-Strips applied. Fundus firm, midline, symmetric, 18 week size. - Neurologic Neurologic: Present: CNII-XII intact - Musculoskeletal Musculoskeletal: Present: gait normal - Psychiatric Psychiatric: Present: A&O x's 3, appropriate affect, intact judgment & insight - Labs CBC & Chem 7: 04/07/18 06:18 Labs: Abnormal Lab Results - Last 24 Hours (Table) 04/07/18 Range/Units 06:18 WBC 12.2 H (3.8-10.6) k/uL Neutrophils # 9.3 H (1.3-7.7) k/uL Assessment and Plan Assessment: Postoperative day #1, doing well Plan: Continue postoperative care. Advanced diet and activity. Time with Patient: Less than 30
[2018-04-07] MEDS: SENNOSIDES-DOCUSATE SODIUM 1 EACH TAB PO SCH ×2 (07:33→21:37)
[2018-04-07] MEDS ORDERED: INFLUENZA VACCINE (6 MOS+) 60 MCG/0.5 ML SYRINGE IM ONE (08:44)
[2018-04-07] MEDS: IBUPROFEN 600 MG TAB PO PRN (21:11)
[2018-04-08] MEDS: LACTATED RINGERS 1,000 ML IV SCH (00:41)
[2018-04-08] MEDS: HYDROcodone/APAP 5-325MG 1 EACH TAB PO PRN ×3 (01:44→18:55)
[2018-04-08] MEDS: IBUPROFEN 600 MG TAB PO PRN ×3 (06:21→22:51)
[2018-04-08] MEDS: SENNOSIDES-DOCUSATE SODIUM 1 EACH TAB PO SCH ×2 (08:32→22:52)
--- NOTE | 2018-04-08 10:07 | P.PN ---
Subjective Progress Note Date: 04/08/18 Slept well. Pain well controlled. No complaints. Objective - Vital Signs Vital signs: Vital Signs Temp 98.3 F 04/08/18 08:00 Pulse 99 04/08/18 08:00 Resp 18 04/08/18 08:00 BP 152/90 04/08/18 08:00 Pulse Ox 96 04/08/18 08:00 Intake & Output 04/07/18 04/08/18 04/08/18 18:59 06:59 18:59 Output Total 850 Balance -850 Output: Urine 850 Other: # Voids 1 - Constitutional General appearance: Present: average body habitus, cooperative, obese - EENT Eyes: Present: PERRLA ENT: Present: hearing grossly normal - Neck Neck: Present: normal ROM - Respiratory Respiratory: bilateral: CTA - Cardiovascular Rhythm: regular - Gastrointestinal General gastrointestinal: Present: normal bowel sounds - Integumentary Integumentary: Present: normal - Neurologic Neurologic: Present: CNII-XII intact - Musculoskeletal Musculoskeletal: Present: gait normal - Psychiatric Psychiatric: Present: A&O x's 3, appropriate affect, intact judgment & insight - Labs CBC & Chem 7: 04/07/18 06:18 Assessment and Plan Assessment: Postoperative day number two. Doing well. Plan: Continue postoperative care. Likely discharge home tomorrow. Time with Patient: Less than 30
[2018-04-09] MEDS: HYDROcodone/APAP 5-325MG 1 EACH TAB PO PRN (03:40)
[2018-04-09] MEDS: IBUPROFEN 600 MG TAB PO PRN ×2 (08:33→15:51)
[2018-04-09] MEDS: SENNOSIDES-DOCUSATE SODIUM 1 EACH TAB PO SCH (08:33)
--- NOTE | 2018-04-09 09:22 | P.DS ---
Providers Date of admission: 04/06/18 05:53 Expected date of discharge: 04/09/18 Attending physician: Latanya Goodwin Primary care physician: Stated None Hospital Course: this is a 22-year-old white female 1 para 0 EDC 04/25/2017 at 36-2/7 weeks' gestation. Patient presented for induction for known monochorionic diamniotic twin , severe IUGR both male infants. testing had been reassuring, maternal medicine consultation was for delivery at 36 weeks. Please see dictated history and physical for details. Artificial amniorrhexis revealed clear fluid. Antibiotics were given for history of group B strep in the urine noted earlier in . Nonreassuring heart tones were encountered on twin A, and therefore the decision was made to proceed with section. She underwent a primary low transverse section and gave to a liveborn male infants. Baby A had scores of 9 and 9 at one and 5 minutes, he weighed 18 10 g, or 4 pounds. Baby B had scores of 7 and 9 at one and 5 minutes respectively , he weighed 4 lbs. 4 oz. or 1945 g. Please see dictated operative note for details. Total estimated blood loss 600 mL. Postoperatively the patient has done well. She is voiding, ambulating and passing flatus without difficulty. Vital signs are stable and she is afebrile. She did have a blood pressure noted of 150s over 90s, stabilized and 130/80 at this time. Incision is clean and dry, intact, well approximated. Fundus is firm, midline, symmetric, 18 week size. Extremities reveal +2 edema, normal reflexes. Breasts are not engorged. Babies are in the nursery and will remain there for some time with feeding issues. Patient is judged to be in good condition for discharge home. She will follow- up with me in the office in 2 weeks. I have reminded her no intercourse, tampons or douching. She will use [id number] Advil or Motrin as needed for pain. She will continue taking her vitamin daily. I have asked her to call me with any foul smelling or copious lochia, with any problems of drainage or redness of the incision, with any issues regarding pain, or indeed with any concerns. Patient Condition at Discharge: Good Plan - Discharge Summary Discharge Rx Participant: No New Discharge Prescriptions: No Action Pnv,Calcium 72/Iron/Folic Acid [ Plus Tablet] 1 tab PO DAILY Discharge Medication List Pnv,Calcium 72/Iron/Folic Acid [ Plus Tablet] 1 tab PO DAILY 10/04/17 [ History] Follow up Appointment(s)/Referral(s): Latanya Goodwin MD [STAFF PHYSICIAN] - 2 Weeks Discharge Disposition: HOME SELF-CARE
[2018-04-09 15:51] VITALS: BP 140/83; PULSE 86; RESP 16; TEMP 98.4
== END 2018-04-09 18:01 | disposition home or self-care (01) | DRG 788 ==
LOC: 4FBP 05:53
PROVIDERS: ADMIT Obstetrics & Gynecology; ATTEND Obstetrics & Gynecology
PROC: 3E033VJ Introduction of Other Hormone into Peripheral Vein, Percutaneous Approach (ICD-10-PCS; principal; 2018-04-06 15:30)
PROC: 10D00Z1 Extraction of Products of Conception, Low, Open Approach (ICD-10-PCS; principal; 2018-04-06 15:30)
PROC: 3E0R3NZ Introduction of Analgesics, Hypnotics, Sedatives into Spinal Canal, Percutaneous Approach (ICD-10-PCS; principal; 2018-04-06 15:30)
PROC: 00HU33Z Insertion of Infusion Device into Spinal Canal, Percutaneous Approach (ICD-10-PCS; principal; 2018-04-06 15:30)
PROC: 10H073Z Insertion of Monitoring Electrode into Products of Conception, Via Natural or Artificial Opening (ICD-10-PCS; principal; 2018-04-06 15:30)
PROC: 10907ZC Drainage of Amniotic Fluid, Therapeutic from Products of Conception, Via Natural or Artificial Opening (ICD-10-PCS; principal; 2018-04-06 15:30)
PROC: 4A1H74Z Monitoring of Products of Conception, Cardiac Electrical Activity, Via Natural or Artificial Opening (ICD-10-PCS; principal; 2018-04-06 15:30)
DX: O36.5931 Maternal care for other known or suspected poor fetal growth, third trimester, fetus 1 (principal); O30.033 Twin pregnancy, monochorionic/diamniotic, third trimester; O36.5932 Maternal care for other known or suspected poor fetal growth, third trimester, fetus 2; Z37.2 Twins, both liveborn; Z3A.36 36 weeks gestation of pregnancy; O76 Abnormality in fetal heart rate and rhythm complicating labor and delivery; O99.824 Streptococcus B carrier state complicating childbirth; Z88.2 Allergy status to sulfonamides; Z87.440 Personal history of urinary (tract) infections; Z83.3 Family history of diabetes mellitus; Z82.49 Family history of ischemic heart disease and other diseases of the circulatory system
CPT/HCPCS: 85025; 86850; 86900; 86901; 88307; 90471; 90472; 90686; 90707

== ENCOUNTER 2019-07-10 05:55 | Emergency (ER) | payer OTHER ==
[2019-07-10 06:01] VITALS: TEMP 98.4
[2019-07-10] MEDS ORDERED: diphenhydrAMINE 50 MG/ML 1 ML VIAL IVP STA (06:06)
[2019-07-10] MEDS ORDERED: METOCLOPRAMIDE 5 MG/ML 2 ML VIAL IVP STA (06:06)
[2019-07-10] MEDS ORDERED: SODIUM CHLORIDE 0.9% 2,000 ML IV STA (06:06)
--- NOTE | 2019-07-10 06:28 | ED ---
Nausea/Vomiting/Diarrhea HPI - General Chief complaint: Nausea/Vomiting/Diarrhea Stated complaint: 13wks preg, vomiting Time Seen by Provider: 07/10/19 06:02 Source: patient, family, RN notes reviewed Mode of arrival: ambulatory Limitations: no limitations - History of Present Illness Initial comments: This a 23-year-old female presents emergency Department chief complaint of nausea vomiting diarrhea. Patient states she's been sick for last 24 hours. Patient states she is 13 weeks , A0. Patient has had an ulcer on murmur . She denies any vaginal bleeding or vaginal discharge. She states that her , son both have some symptoms but they seem to be improving. She reports no fevers chills no chest pain or shortness breath she states she has some mild lower abdominal pain in epigastric discomfort from vomiting. Denies any melena, hematochezia. Denies any hematemesis or coffee- ground emesis. - Related Data Home Medications Medication Instructions Recorded Confirmed Pnv,Calcium 72/Iron/Folic Acid 1 tab PO DAILY 10/04/17 04/06/18 [ Plus Tablet] Allergies Allergy/AdvReac Type Severity Reaction Status Date / Time Sulfa (Sulfonamide Allergy Anaphylaxis Verified 07/10/19 06:01 Antibiotics) sulfamethoxazole Allergy Rash/Hives Verified 07/10/19 06:01 [From Bactrim] trimethoprim [From Bactrim] Allergy Rash/Hives Verified 07/10/19 06:01 Review of Systems ROS Statement: Those systems with pertinent positive or pertinent negative responses have been documented in the HPI. ROS Other: All systems not noted in ROS Statement are negative. Past Medical History Past Medical History: No Reported History Additional Past Medical History / Comment(s): frequent UTI's History of Any Multi-Drug Resistant Organisms: None Reported Past Surgical History: Adenoidectomy, Section, Tonsillectomy Additional Past Surgical History / Comment(s): under age of 11 Past Anesthesia/Blood Transfusion Reactions: No Reported Reaction Past Psychological History: Anxiety, Depression Smoking Status: Never smoker Past Alcohol Use History: None Reported Past Drug Use History: None Reported - Past Family History Mother Family Medical History: No Reported History General Exam Limitations: no limitations General appearance: alert, in no apparent distress Head exam: Present: atraumatic, normocephalic, normal inspection Eye exam: Present: normal appearance, PERRL, EOMI. Absent: scleral icterus, conjunctival injection, periorbital swelling ENT exam: Present: normal exam, normal oropharynx, mucous membranes moist, TM's normal bilaterally Neck exam: Present: normal inspection, full ROM. Absent: tenderness, meningismus, lymphadenopathy Respiratory exam: Present: normal lung sounds bilaterally. Absent: respiratory distress, wheezes, rales, rhonchi, stridor Cardiovascular Exam: Present: normal rhythm, tachycardia, normal heart sounds. Absent: systolic murmur, diastolic murmur, rubs, gallop, clicks GI/Abdominal exam: Present: soft, tenderness (Minimal suprapubic), normal bowel sounds. Absent: distended, guarding, rebound, rigid Back exam: Absent: CVA tenderness (R), CVA tenderness (L) Neurological exam: Present: alert, oriented X3 Skin exam: Present: warm, dry, intact, normal color. Absent: rash Course Vital Signs 07/10/19 07/10/19 05:57 07:37 Temperature 98.4 F Pulse Rate 123 H 98 Respiratory 24 16 Rate Blood Pressure 121/79 121/30 O2 Sat by Pulse 98 99 Oximetry Medical Decision Making - Medical Decision Making Labs were reviewed, urinalysis reviewed patient has signs dehydration the patient was given 2 L of fluid, tolerate oral intake at this time. She states that she feels better, clinically is improved at this time. Patient we discharged with gastritis enteritis with Zofran return parameters were discussed. - Lab Data Result diagrams: 07/10/19 06:26 07/10/19 06:26 Lab Results 07/10/19 07/10/19 07/10/19 Range/Units 06:26 06:26 07:30 WBC 10.6 (3.8-10.6) k/uL RBC 4.83 (3.80-5.40) m/uL Hgb 13.1 (11.4-16.0) gm/dL Hct 38.7 (34.0-46.0) % MCV 80.1 (80.0-100.0) fL MCH 27.2 (25.0-35.0) pg MCHC 34.0 (31.0-37.0) g/dL RDW 13.7 (11.5-15.5) % Plt Count 340 (150-450) k/uL Neutrophils % 93 % Lymphocytes % 4 % Monocytes % 2 % Eosinophils % 1 % Basophils % 0 % Neutrophils # 9.9 H (1.3-7.7) k/uL Lymphocytes # 0.4 L (1.0-4.8) k/uL Monocytes # 0.2 (0-1.0) k/uL Eosinophils # 0.1 (0-0.7) k/uL Basophils # 0.0 (0-0.2) k/uL Sodium 134 L (137-145) mmol/L Potassium 4.0 (3.5-5.1) mmol/L Chloride 106 (98-107) mmol/L Carbon Dioxide 18 L (22-30) mmol/L Anion Gap 10 mmol/L BUN 7 (7-17) mg/dL Creatinine 0.40 L (0.52-1.04) mg/dL Est GFR (CKD-EPI)AfAm >90 (>60 ml/min/1.73 sqM) Est GFR (CKD-EPI)NonAf >90 (>60 ml/min/1.73 sqM) Glucose 137 H (74-99) mg/dL Calcium 9.1 (8.4-10.2) mg/dL Total Bilirubin 0.5 (0.2-1.3) mg/dL AST 22 (14-36) U/L ALT 18 (4-34) U/L Alkaline Phosphatase 128 H (38-126) U/L Total Protein 7.2 (6.3-8.2) g/dL Albumin 3.8 (3.5-5.0) g/dL Lipase 28 (23-300) U/L Urine Color Yellow Urine Appearance Cloudy H (Clear) Urine pH 6.0 (5.0-8.0) Ur Specific [place] 1.029 (1.001-1.035) Urine Protein 1+ H (Negative) Urine Glucose (UA) Negative (Negative) Urine Ketones 4+ H (Negative) Urine Blood Negative (Negative) Urine Nitrite Negative (Negative) Urine Bilirubin Negative (Negative) Urine Urobilinogen <2.0 (<2.0) mg/dL Ur Leukocyte Esterase Small H (Negative) Urine RBC 3 (0-5) /hpf Urine WBC 8 H (0-5) /hpf Ur Squamous Epith Cells 7 H (0-4) /hpf Urine Mucus Many H (None) /hpf Disposition Clinical Impression: Dehydration, Gastroenteritis Disposition: HOME SELF-CARE Condition: Stable Instructions (If sedation given, give patient instructions): Acute Nausea and Vomiting (ED) Additional Instructions: Please return to the Emergency Department if symptoms worsen or any other concerns. Is patient prescribed a controlled substance at d/c from ED?: No Referrals: Chris Kern MD [Primary Care Provider] - 1-2 days Time of Disposition: 08:46
[2019-07-10 06:40] LABS: Basophils % (A) 0 %; Eosinophils # (A) 0.1 k/uL (0-0.7); Eosinophils % (A) 1 %; HCT 38.7 % (34.0-46.0); HGB 13.1 gm/dL (11.4-16.0); Lymphocytes # (A) 0.4 k/uL (1.0-4.8); Lymphocytes % (A) 4 %; MCH 27.2 pg (25.0-35.0); MCV 80.1 fL (80.0-100.0); Monocytes # (A) 0.2 k/uL (0-1.0); Monocytes % (A) 2 %; Neutrophils # (A) 9.9 k/uL (1.3-7.7); Neutrophils % (A) 93 %; Platelet Count 340 k/uL (150-450); RBC 4.83 m/uL (3.80-5.40); RDW 13.7 % (11.5-15.5); WBC 10.6 k/uL (3.8-10.6)
[2019-07-10 06:49] LABS: ALT 18 U/L (4-34); AST 22 U/L (14-36); African American GFR (CKD) >90 (>60 ml/min/1.73 sqM); Albumin 3.8 g/dL (3.5-5.0); Alkaline Phosphatase 128 U/L (38-126); Anion Gap 10 mmol/L; Blood Urea Nitrogen 7 mg/dL (7-17); Calcium 9.1 mg/dL (8.4-10.2); Carbon Dioxide 18 mmol/L (22-30); Chloride 106 mmol/L (98-107); Glucose 137 mg/dL (74-99); Non-African American GFR(CKD) >90 (>60 ml/min/1.73 sqM); Sodium 134 mmol/L (137-145); Total Bilirubin 0.5 mg/dL (0.2-1.3); Total Protein 7.2 g/dL (6.3-8.2)
--- NOTE | 2019-07-10 07:35 | US ---
EXAMINATION TYPE: US OB limited DATE OF EXAM: 07/10/2019 COMPARISON: NONE CLINICAL HISTORY: heart tones. No problems, patient thinks she has the flu EXAM PERFORMED: Transabdominal (TA) GESTATIONAL AGE / DATING Physician Established: (13 weeks/3 days) EDC: 01/12/2020 Dates by Current Scan: No growth performed on today?s study per ordering physician SURVEY HEART RATE: 155 bpm RHYTHM: Normal Viable IUP. IMPRESSION: 2 images saved confirm single live intrauterine gestation with heart rate within normal limits.
[2019-07-10 07:55] LABS: Appearance,Urine Cloudy (Clear); Bilirubin,Urine Negative (Negative); Blood,Urine Negative (Negative); Color,Urine Yellow; Glucose,Urine (UA) Negative (Negative); Ketones,Urine 4+ (Negative); Leukocyte Esterase,Urine Small (Negative); Mucus,Urine Many /hpf; Nitrite,Urine Negative (Negative); Protein,Urine 1+ (Negative); RBC,Urine 3 /hpf (0-5); Specific Gravity,Urine 1.029 (1.001-1.035); Squamous Epithelial Cell,Urine 7 /hpf (0-4); Urobilinogen,Urine <2.0 mg/dL (<2.0); WBC,Urine 8 /hpf (0-5)
[2019-07-10] MEDS ORDERED: ONDANSETRON 4 MG ODT STARTER PACK 2 TAB BTL PO STA (08:45)
[2019-07-10 08:58] VITALS: BP 132/74; PULSE 87; RESP 18
== END 2019-07-10 08:55 | disposition home or self-care (01) ==
LOC: EC 05:55
DX: R10.30 Lower abdominal pain, unspecified (principal); O99.281 Endocrine, nutritional and metabolic diseases complicating pregnancy, first trimester; E86.0 Dehydration; O99.611 Diseases of the digestive system complicating pregnancy, first trimester; K52.9 Noninfective gastroenteritis and colitis, unspecified; Z3A.13 13 weeks gestation of pregnancy; Z88.1 Allergy status to other antibiotic agents; Z88.2 Allergy status to sulfonamides
CPT/HCPCS: 36415; 80053; 83690; 85025; 81001; 76815; 99284; 96374; 96375; 96361 ×2; J1200; J2765; S0119

== ENCOUNTER 2020-01-11 06:00 | Inpatient (IN) | payer OTHER ==
[2020-01-11] MEDS ORDERED: CITRIC ACID-SODIUM CITRATE 15 ML CUP PO ONE (08:01)
[2020-01-11] MEDS ORDERED: ceFAZolin 3 GM in SODIUM CHLORIDE 0.9% 100 ML IVPB ONE (08:01)
[2020-01-11] MEDS: LACTATED RINGERS 1,000 ML IV SCH ×4 (08:19→17:01)
--- NOTE | 2020-01-11 08:58 | P.HPOB ---
History of Present Illness H&P Date: 01/11/20 Chief Complaint: Here for elective repeat section This is a 24-year-old white female 2 para 0202 EDC 01/12/2020 39-6/7 weeks' gestation. Patient presents today with a history of previous section, unfavorable cervix, large for gestational age fetus, requesting repeat section. Tubal ligation has been discussed and declined. Fetus is been active throughout the . She denies vaginal bleeding or fluid leakage. Past surgical history section 2018 for twin gestation, wisdom teeth extracted at age 17, tonsillectomy and adenoidectomy. Past medical history is significant for obesity. Current medications vitamins daily. ALLERGIES sulfa to which she reports an anaphylactic reaction, along with seasonal ALLERGIES. Past medical history significant for hypertension, diabetes, borderline personality disorder. Reproductive history section 2018 as noted above. Social history patient is , she is a nonsmoker, she denies alcohol or drug use. Obstetric history significant for blood type A+, rubella status immune. Gonorrhea and chlamydia cultures, group B strep cultures, urine culture, Pap smear all negative. Hepatitis B surface antigen, HIV testing negative. One- hour Glucola 89, hemoglobin A1c 5.0. On exam patient is 5 foot 3 inches, 280 pounds, blood pressure 134/81. General physical exam is within normal limits. Chest is clear in all busch. Abdomen is obvious E gravid with a fundal height of 42 cm. Cervix is long thick and closed, unfavorable. heart rate is consistent with reactive NST. is vertex to Oliver's maneuvers. Impression: 39-6/7 weeks intrauterine , previous section, unfavorable cervix, requesting repeat , declining tubal ligation. Plan: We will proceed with repeat low transverse section, antibiotic prophylaxis. All risks benefits and alternatives have been discussed in detail. All questions answered. Review of Systems Constitutional: Reports as per HPI Past Medical History Past Medical History: No Reported History Additional Past Medical History / Comment(s): frequent UTI's History of Any Multi-Drug Resistant Organisms: None Reported Past Surgical History: Adenoidectomy, Section, Tonsillectomy Additional Past Surgical History / Comment(s): under age of 11 Past Anesthesia/Blood Transfusion Reactions: No Reported Reaction Past Psychological History: Anxiety, Depression Past Alcohol Use History: None Reported Past Drug Use History: None Reported - Past Family History Mother Family Medical History: No Reported History Medications and Allergies Home Medications Medication Instructions Recorded Confirmed Type Pnv,Calcium 72/Iron/Folic Acid 1 tab PO DAILY 10/04/17 01/11/20 History [ Plus Tablet] Allergies Allergy/AdvReac Type Severity Reaction Status Date / Time Sulfa (Sulfonamide Allergy Anaphylaxis Verified 07/10/19 06:01 Antibiotics) sulfamethoxazole Allergy Rash/Hives Verified 07/10/19 06:01 [From Bactrim] trimethoprim [From Bactrim] Allergy Rash/Hives Verified 07/10/19 06:01 Exam Intake and Output 01/10/20 01/11/20 01/11/20 22:59 06:59 14:59 Other: Weight 127.006 kg See dictation under HPI please Assessment and Plan Assessment: 39-6/7 weeks intrauterine , here for repeat section. [place] strep cultures negative. All signs reassuring. Maternal obesity noted. Plan: For repeat low transverse section, no tubal ligation. Time with Patient: Less than 30
[2020-01-11 09:19] LABS: Basophils % (A) 0 %; Eosinophils # (A) 0.1 k/uL (0-0.7); Eosinophils % (A) 1 %; HCT 36.2 % (34.0-46.0); HGB 11.8 gm/dL (11.4-16.0); Lymphocytes # (A) 1.7 k/uL (1.0-4.8); Lymphocytes % (A) 20 %; MCH 27.6 pg (25.0-35.0); MCHC 32.6 g/dL (31.0-37.0); MCV 84.7 fL (80.0-100.0); Mean Platelet Volume 7.3; Monocytes # (A) 0.3 k/uL (0-1.0); Monocytes % (A) 4 %; Neutrophils # (A) 6.2 k/uL (1.3-7.7); Neutrophils % (A) 74 %; Platelet Count 225 k/uL (150-450); RBC 4.28 m/uL (3.80-5.40); RDW 15.2 % (11.5-15.5); WBC 8.4 k/uL (3.8-10.6)
[2020-01-11] MEDS ORDERED: MORPHINE SULFATE (PF) 0.3 MG/0.3 ML SYR ONE (09:40)
[2020-01-11] MEDS ORDERED: KETOROLAC 30 MG/ML 1 ML VIAL ONE (09:40)
[2020-01-11] MEDS ORDERED: ONDANSETRON 4 MG/2 ML VIAL ONE (09:40)
[2020-01-11] MEDS ORDERED: NALBUPHINE 10 MG/ML (1 ML AMP) ONE (09:40)
[2020-01-11] MEDS ORDERED: ePHEDrine SULFATE/0.9% NACL/PF 50 MG/5 ML SYRINGE IV ONE (09:40)
[2020-01-11] MEDS ORDERED: HYDROmorphone 0.5 MG/0.5 ML SYRINGE IVP PRN (10:19)
[2020-01-11] MEDS ORDERED: NALOXONE 0.4 MG/ML 1 ML VIAL IV PRN ×2 (10:19→10:25)
[2020-01-11] MEDS ORDERED: diphenhydrAMINE 50 MG/ML 1 ML VIAL IVP PRN ×3 (10:19→10:25)
[2020-01-11] MEDS ORDERED: ONDANSETRON 4 MG/2 ML VIAL IVP PRN ×2 (10:19→10:25)
[2020-01-11] MEDS ORDERED: KETOROLAC 30 MG/ML 1 ML VIAL IVP PRN ×2 (10:19→10:25)
[2020-01-11] MEDS ORDERED: diphenhydrAMINE 25 MG CAP PO PRN (10:25)
[2020-01-11] MEDS ORDERED: ZOLPIDEM 5 MG TAB PO PRN (10:25)
[2020-01-11] MEDS ORDERED: SIMETHICONE 80 MG CHEWABLE PO PRN (10:25)
[2020-01-11] MEDS ORDERED: METOCLOPRAMIDE 5 MG/ML 2 ML VIAL IVP PRN (10:25)
[2020-01-11] MEDS ORDERED: diphenhydrAMINE 50 MG CAP PO PRN (10:25)
--- NOTE | 2020-01-11 10:25 | P.OP ---
Date of Procedure: 01/11/20 Preoperative Diagnosis: 39-6/7 weeks intrauterine , unfavorable cervix, previous section, large for gestational age fetus, declining . Postoperative Diagnosis: Same, liveborn male infant, normal-appearing tubes and ovaries Procedure(s) Performed: Repeat low transverse section Anesthesia: spinal Surgeon: Latanya Goodwin Slip Caster #1: Hilario Brown Estimated Blood Loss (ml): 400 IV fluids (ml): 600 Urine output (ml): 200 Pathology: none sent Condition: stable Disposition: PACU Description of Procedure: Patient is brought to the operating suite where a spinal with Duramorph is administered without difficulty. She's placed in the dorsal supine position with left lateral uterine displacement. The appropriate timeout was performed to assure proper patient and procedural identification. 3 g of Ancef are given. Martinez placed to direct drainage. The abdomen is prepped and draped in usual sterile fashion. Analgesia is checked and noted to be adequate. A repeat low transverse skin incision is made and carried down through the subcutaneous tissue which is approximate 6 cm in depth. Fascia is isolated, scored, and extended bilaterally with curved Estevez scissors. Peritoneum is next identified and incised, there is no bowel or bladder involvement. The bladder is gently taken down with Metzenbaum scissors and at all times Well from the operative field to avoid bladder and/or ureteral injury. The disposable ring retractor is placed for excellent visualization. A low transverse uterine incision is made in this is extended bluntly. Artificial amniorrhexis reveals clear fluid. Infant's head is delivered in the occiput anterior position. There is no nuchal cord noted. The oropharynx, nasopharynx, and external nares were all bulb suctioned carefully. The patient is officially delivered of a liveborn male at 0954 hours. Umbilical cord is doubly clamped and ligated, he is handed to waiting nurses for evaluation where scores of 8 and 9 at one and 5 minutes respectively are given. The placenta delivers spontaneously, it is inspected and noted to be intact with trivascular cord at 0955 hours. Uterus is then massaged. The uterus is swept clean with a sterile sponge to avoid any retained products of conception. The edges of the incision are grasped with Fuller clamps. The uterus is closed in a two-step fashion, first layer runn ing locking with 0 Vicryl, second layer imbricated with 0 Vicryl. Bilateral tubes and ovaries are inspected and noted to be normal. No uterine anomalies are noted. Abdomen is suctioned with suction on guard and the uterus is gently placed back into the abdominal cavity. Bilateral gutters are inspected and cleaned. Hemostasis is excellent. Peritoneum is allowed close by secondary intention. Fascia is closed in a running stitch using 0 Vicryl suture with over ligation in the midline. Subcutaneous tissue is irrigated, noted to be clean and dry. It is reapproximated with 2-0 Vicryl in a running fashion. 4-0 undyed Monocryl is used for final skin closure. Steri-Strips and Mastisol are applied to the wound. Uterus is massaged. Martinez is noted to be draining clear urine. All sponge needle and instrument counts are correct at the end of the procedure. weighs 8 lbs. 2 oz. or 3840 g. All sponge needle and enhancement counts are correct at the end of the procedure. Patient is requesting circumcision for her infant son.
[2020-01-11] MEDS: SENNOSIDES-DOCUSATE SODIUM 1 EACH TAB PO SCH (20:17)
[2020-01-12 05:53] LABS: Basophils % (A) 0 %; Eosinophils # (A) 0.1 k/uL (0-0.7); Eosinophils % (A) 1 %; HCT 32.9 % (34.0-46.0); HGB 10.9 gm/dL (11.4-16.0); Lymphocytes # (A) 1.4 k/uL (1.0-4.8); Lymphocytes % (A) 15 %; MCH 28.3 pg (25.0-35.0); MCHC 33.1 g/dL (31.0-37.0); MCV 85.4 fL (80.0-100.0); Mean Platelet Volume 7.5; Monocytes # (A) 0.4 k/uL (0-1.0); Monocytes % (A) 4 %; Neutrophils # (A) 7.7 k/uL (1.3-7.7); Neutrophils % (A) 79 %; Platelet Count 181 k/uL (150-450); RBC 3.85 m/uL (3.80-5.40); RDW 15.3 % (11.5-15.5); WBC 9.7 k/uL (3.8-10.6)
[2020-01-12] MEDS: IBUPROFEN 600 MG TAB PO PRN ×3 (06:39→18:45)
--- NOTE | 2020-01-12 09:25 | P.PN ---
Subjective Progress Note Date: 01/12/20 Principal diagnosis: Postoperative day #1 Slept well. Requesting restart of Zoloft. Positive flatus. Pain well controlled. Objective - Vital Signs Vital signs: Vital Signs Temp 98.2 F 01/12/20 03:33 Pulse 91 01/12/20 03:33 Resp 16 01/12/20 03:33 BP 118/77 01/12/20 03:33 Pulse Ox 98 01/12/20 03:33 Intake & Output 01/11/20 01/12/20 01/12/20 18:59 06:59 18:59 Output Total 500 100 Balance -500 -100 Weight 127.006 kg Output: Urine 500 100 Uretheral (Martinez) 300 Other: # Voids 1 - Constitutional General appearance: Present: cooperative, morbidly obese - EENT Eyes: Present: PERRLA ENT: Present: hearing grossly normal - Neck Neck: Present: normal ROM - Respiratory Respiratory: bilateral: CTA - Cardiovascular Rhythm: regular - Gastrointestinal General gastrointestinal: Present: normal bowel sounds - Integumentary Integumentary: Present: normal - Neurologic Neurologic: Present: CNII-XII intact - Musculoskeletal Musculoskeletal: Present: gait normal, strength equal bilaterally - Psychiatric Psychiatric: Present: A&O x's 3, appropriate affect, intact judgment & insight - Labs CBC & Chem 7: 01/12/20 05:29 Labs: Abnormal Lab Results - Last 24 Hours (Table) 01/12/20 Range/Units 05:29 Hgb 10.9 L (11.4-16.0) gm/dL Hct 32.9 L (34.0-46.0) % Assessment and Plan Assessment: Doing well day #1 Plan: Continue postoperative care. We will restart Zoloft 50 mg daily. Circumcision today. Likely discharge home tomorrow. Time with Patient: Less than 30
[2020-01-12] MEDS: SENNOSIDES-DOCUSATE SODIUM 1 EACH TAB PO SCH ×2 (13:53→20:41)
[2020-01-12 15:51] VITALS: RESP 18
[2020-01-12] MEDS: ACETAMINOPHEN TAB 325 MG TAB PO PRN ×2 (20:40)
[2020-01-13] MEDS: IBUPROFEN 600 MG TAB PO PRN ×2 (02:40→08:43)
[2020-01-13] MEDS: ACETAMINOPHEN TAB 325 MG TAB PO PRN (06:06)
--- NOTE | 2020-01-13 07:43 | P.PN ---
Progress Note - Text Progress Note Date: 01/12/20 Patient was seen 01/12/2020 for post op rounds from spinal duramorph. She was doing well, no parasthesia, weakness, bowel/bladder incontinence. Able to ambulate and was passing flatus and able to micturate on her own.
--- NOTE | 2020-01-13 07:50 | P.DS ---
Providers Date of admission: 01/11/20 07:58 Expected date of discharge: 01/13/20 Attending physician: Latanya Goodwin Primary care physician: Stated None Hospital Course: This is a 24-year-old white female 2 para 0202 who presented at 39-6/7 weeks' gestation for repeat low transverse section. First was for twins, initial thought was for , however was noted to be large with unfavorable cervix and patient requested repeat . Blood type A positive, rubella status immune. Group B strep cultures negative. Please see dictated history and physical for details. Patient was admitted and underwent a repeat low transverse section. She gave to a liveborn male infant with scores of 8 and 9 at one and 5 minutes respectively. Infant weighed 8 lbs. 7 oz. or 3840 g. Estimated blood loss at surgery 400 mL's. Please see dictated operative note for details. This morning the patient is doing very well. She is voiding, ambulating and passing flatus without difficulty. Incision is clean and dry, intact, Steri- Strips applied. Extremities are negative for edema. Breasts are not engorged. Fundus is firm, midline, symmetric, 18 week size. Vital signs are stable and she is afebrile. [place] is doing well, circumcision has been performed. Patient is judged to be in very good condition for discharge home. She will follow-up with me in the office in 2 weeks for incision check. She will use [id number] Advil or Aleve, or Motrin as needed for pain. This may be alternating with extra strength Tylenol. I've asked her to call with any fevers shakes or chills, foul smelling or copious lochia, with the passage of large blood clots, with any pain not alleviated by [id number] products, or indeed with any concerns. infant will follow-up with deicer kit assembler as per recommendations. Assessment: Doing well postoperative day number two Patient Condition at Discharge: Good Plan - Discharge Summary Discharge Rx Participant: No New Discharge Prescriptions: No Action Pnv,Calcium 72/Iron/Folic Acid [ Plus Tablet] 1 tab PO DAILY Discharge Medication List Pnv,Calcium 72/Iron/Folic Acid [ Plus Tablet] 1 tab PO DAILY 10/04/17 [History] Follow up Appointment(s)/Referral(s): Latanya Goodwin MD [STAFF PHYSICIAN] - 2 Weeks Discharge Disposition: HOME SELF-CARE
[2020-01-13] MEDS: SENNOSIDES-DOCUSATE SODIUM 1 EACH TAB PO SCH (10:11)
[2020-01-13 10:52] VITALS: BP 129/82; PULSE 102; TEMP 97.7
== END 2020-01-13 10:15 | disposition home or self-care (01) | DRG 788 ==
LOC: 4FBP 07:58
PROVIDERS: ADMIT Obstetrics & Gynecology; ATTEND Obstetrics & Gynecology
PROC: 10D00Z1 Extraction of Products of Conception, Low, Open Approach (ICD-10-PCS; principal; 2020-01-11 06:00)
DX: O36.63X0 Maternal care for excessive fetal growth, third trimester, not applicable or unspecified (principal); O34.211 Maternal care for low transverse scar from previous cesarean delivery; O99.214 Obesity complicating childbirth; E66.01 Morbid (severe) obesity due to excess calories; Z37.0 Single live birth; Z3A.39 39 weeks gestation of pregnancy; Z87.440 Personal history of urinary (tract) infections; Z88.2 Allergy status to sulfonamides; Z88.1 Allergy status to other antibiotic agents; Z90.89 Acquired absence of other organs; Z86.59 Personal history of other mental and behavioral disorders
CPT/HCPCS: 85025; 86850; 86900; 86901